=== PATIENT | female | born 1965 | race Caucasian/White ===

== ENCOUNTER → 2017-06-05 | Outpatient (CLI) | payer OTHER, BC ==
[~2017-06-05] MED LIST: BENZ100C6 PO; HYDR12.56 PO; LEVO-366 PO; LOSA50TA6 PO; [UNRECOGNIZED DRUG - OTHER] PO
--- NOTE | 2017-06-05 08:44 | DIAGNOSTIC IMAGING REPORT ---
LEFT HEEL 2 VIEWS HISTORY: Left heel pain. COMPARISON: None. FINDINGS: There is no fracture or dislocation. Soft tissues are unremarkable. No radiopaque foreign bodies. Small plantar and posterior calcaneal spurs. IMPRESSION: No fractures. Electronically signed by: Brant Bailey M.D. 06/05/2017 8:42 AM Dictated Date/Time: 06/05/2017 8:41 AM
[2017-06-05 09:39] LABS: BASO % 0.3 %; BASO ABS # 0.02 K/uL (0-0.2); COMPLETE YES; EOS % 0.2 %; HEMATOCRIT 45.4 % (37-47); IG% 0.2 %; LYMPH % 35.3 %; LYMPH ABS # 2.25 K/uL (1.2-3.4); MEAN CELL VOLUME 89.9 fL (80-100); MEAN CORPUSCULAR HEMOGLOBIN 29.9 pg (25-34); MEAN CORPUSCULAR HGB CONC 33.3 g/dl (32-36); MEAN PLATELET VOLUME 10.5 fL (7.4-10.4); MONO % 5.8 %; NEUT % 58.2 %; PLATELET COUNT 175 K/uL (130-400); RED BLOOD COUNT 5.05 M/uL (4.2-5.4); WHITE BLOOD COUNT 6.38 K/uL (4.8-10.8)
[2017-06-05 10:03] LABS: ALT/SGPT 20 U/L (12-78); BLOOD UREA NITROGEN 14 mg/dl (7-18); BUN/CREATININE RATIO 18.6 (10-20); CALCIUM 9.5 mg/dl (8.5-10.1); CARBON DIOXIDE 29 mmol/L (21-32); CHLORIDE 106 mmol/L (98-107); CHOLESTEROL 197 mg/dl (0-200); CREATININE 0.77 mg/dl (0.60-1.20); GLUCOSE 66 mg/dl (70-99); POTASSIUM 3.7 mmol/L (3.5-5.1); SODIUM 140 mmol/L (136-145)
[2017-06-05 10:14] LABS: ALB/GLOB RATIO 1.2 (0.9-2); ALKALINE PHOSPHATASE 92 U/L (45-117); AST/SGOT 20 U/L (15-37); CHOLESTEROL/HDL RATIO 4.3; HDL CHOLESTEROL 46 mg/dl; LDL CHOLESTEROL CALCULATED 123 mg/dl; TRIGLYCERIDES 140 mg/dl (0-150); VERY LOW DENSITY LIPOPROT CALC 28 mg/dl
[2017-06-05 17:47] LABS: URINE APPEARANCE CLEAR (CLEAR); URINE BILIRUBIN NEG (NEG); URINE COLOR YELLOW; URINE NITRITE NEG (NEG); URINE SPECIFIC GRAVITY 1.019 (1.000-1.030); UROBILINOGEN NEG (NEG); ZZUR CULT IF INDIC CLEAN CATCH NO
[2017-06-05 17:49] LABS: MANUAL MICROSCOPIC REQUIRED? NO; REVIEW REQ? NO
== END | disposition home or self-care (01) ==
LOC: C.RAD1850 07:26
PROVIDERS: ATTEND Internal Medicine
DX: M79.672 Pain in left foot (principal); D35.00 Benign neoplasm of unspecified adrenal gland; E78.5 Hyperlipidemia, unspecified

== ENCOUNTER → 2017-06-09 | Outpatient (CLI) | payer OTHER, BC ==
[2017-06-13 18:26] LABS: VANILMANDELIC ACID (VMA) 5.3 mg/24 h (<=6.0)
== END | disposition home or self-care (01) ==
LOC: C.LABBFT 10:23
PROVIDERS: ATTEND Internal Medicine
DX: D35.00 Benign neoplasm of unspecified adrenal gland (principal)

== ENCOUNTER → 2017-06-29 | Outpatient (CLI) | payer OTHER, BC ==
[2017-07-06 15:26] LABS: VANILMANDELIC ACID (VMA) 2.6 mg/24 h (<=6.0)
== END | disposition home or self-care (01) ==
LOC: C.LABBFT 18:19
PROVIDERS: ATTEND Internal Medicine
DX: D35.00 Benign neoplasm of unspecified adrenal gland (principal)

== ENCOUNTER → 2017-07-08 | Outpatient (CLI) | payer OTHER, BC ==
[~2017-07-08] MED LIST changes: +OPTIRAY 320 IV PRN
--- NOTE | 2017-07-08 07:32 | DIAGNOSTIC IMAGING REPORT ---
CT SCAN OF THE ABDOMEN AND PELVIS COMBO ADRENAL PROTOCOL CLINICAL HISTORY: Underlying anomaly. COMPARISON STUDY: Abdominal CT dated 08/30/2014. TECHNIQUE: Before and following the IV administration of 93 cc of Optiray 320, CT scan of the abdomen and pelvis is performed from the lung bases to the proximal femora. The abdominal CT is performed using the adrenal protocol. Images are reviewed in the axial, sagittal, and coronal planes. IV contrast was administered without complication. A dose lowering technique was utilized adhering to the principles of ALARA. The examination is degraded by motion artifact. CT DOSE: 1721.24 mGycm FINDINGS: Lung bases: The heart is normal in size and without pericardial effusion. Emphysema is noted. The lung bases are otherwise clear. Liver: The contrast-enhanced liver is normal in size, contour, and attenuation. There is no intrahepatic biliary ductal dilatation. The hepatic veins and portal veins are patent. Gallbladder: Unremarkable. Spleen: Normal in size and attenuation. Pancreas: Unremarkable. Adrenal glands: A 2.7 cm left adrenal nodule is again noted. This meets CT criteria for a fat-containing adenoma. The right adrenal gland is normal in appearance. Kidneys: No renal calculi are identified on the unenhanced series. The contrast enhanced kidneys are normal in size and without hydronephrosis. The kidneys enhance and excrete symmetrically. There is no evidence of urothelial lesion within the renal pelvis bilaterally or involving the proximal ureters. Abdominal vasculature: The abdominal aorta is normal in course and caliber noting moderate atherosclerotic calcification. Bowel: There is constipation and rectosigmoid fecal impaction. No bowel obstruction is seen. There is mild to moderate colonic diverticulosis without CT evidence of acute diverticulitis. The appendix is well-visualized and normal. Peritoneum: There is no intraperitoneal free air or abdominal ascites. Lymphadenopathy: None. Pelvic viscera: The bladder, uterus, and adnexa are normal as visualized. Skeletal structures: The Skeletal structures are osteopenic. There are postoperative changes from L3 -S1 spinal fusion. No lytic or blastic lesions are seen. IMPRESSION: 1. Again seen is a 2.7 cm left adrenal nodule. This meets CT criteria for a fat-containing adenoma. 2. The right adrenal gland is normal in appearance. 3. Emphysema. 4. No acute infectious or inflammatory abnormality is identified. 5. Colonic diverticulosis without CT evidence of acute diverticulitis. Electronically signed by: Jesus Bynum M.D. 07/08/2017 7:31 AM Dictated Date/Time: 07/08/2017 7:22 AM
== END | disposition home or self-care (01) ==
LOC: C.CTS 06:28
PROVIDERS: ATTEND Internal Medicine
DX: D35.00 Benign neoplasm of unspecified adrenal gland (principal); J43.9 Emphysema, unspecified; K57.30 Diverticulosis of large intestine without perforation or abscess without bleeding

== ENCOUNTER → 2017-07-28 | Outpatient (CLI) | payer OTHER, BC ==
[~2017-07-28] MED LIST changes: -OPTIRAY 320 IV PRN
== END | disposition home or self-care (01) ==
LOC: C.LAB1850 07:16
PROVIDERS: ATTEND Internal Medicine
DX: D35.00 Benign neoplasm of unspecified adrenal gland (principal)

== ENCOUNTER → 2017-08-01 | Outpatient (CLI) | payer OTHER, BC ==
--- NOTE | 2017-08-01 09:32 | DIAGNOSTIC IMAGING REPORT ---
CERVICAL SPINE W/O CLINICAL HISTORY: 51 years-old Female presenting with CERVICAL STENOSIS. TECHNIQUE: Multidetector CT of the cervical spine was performed without the use of intravenous contrast. IV contrast: None. A dose lowering technique was used consistent with the principles of ALARA (as low as reasonably achievable). COMPARISON: MR from 2012. CT DOSE (mGy.cm): The estimated cumulative dose is 253.76 mGy.cm. 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 Orthopedic hardware in the inferior cervical spine. Normal cervical lordosis. Fixation hardware noted at C5-6 and C6-7. Partial osseous fusion noted at C5-6 at the central endplates. No hardware complication. Interbody spacers suggested at these levels. No acute fracture or subluxation. Vertebral bodies maintain normal height and alignment. Intervertebral disc spaces preserved at the nonoperative levels. No osseous neural foraminal or spinal canal stenosis. Paraspinal soft tissues within normal limits. Limited intracranial evaluation normal. Emphysematous changes at the lung apices. IMPRESSION: 1. Postsurgical changes of anterior cervical discectomy and fusion of C5-6 and C6-7. No hardware complication. 2. No acute osseous injury of the cervical spine. Electronically signed by: Geronimo Lou M.D. 08/01/2017 9:31 AM Dictated Date/Time: 08/01/2017 9:27 AM
== END | disposition home or self-care (01) ==
LOC: C.CTS 09:03
PROVIDERS: ATTEND Orthopaedic Surgery
DX: M48.02 Spinal stenosis, cervical region (principal); Z98.890 Other specified postprocedural states

== ENCOUNTER → 2017-10-21 | Outpatient (CLI) | payer OTHER, BC ==
[~2017-10-21] MED LIST changes: +BENZ-54 PO; -BENZ100C6 PO
== END | disposition home or self-care (01) ==
LOC: C.PAPS 13:11
PROVIDERS: ATTEND Internal Medicine
DX: Z00.00 Encounter for general adult medical examination without abnormal findings (principal)

== ENCOUNTER → 2017-10-28 | Outpatient (CLI) | payer OTHER, BC ==
[2017-10-31 19:40] LABS: NORMETANEPHRINE PLASMA 170 pg/mL (<=148); TESTOSTERONE,TOTAL 12 ng/dL (2-45); TOTAL METANEPHRINE PLASMA 170 pg/mL (<=205)
== END | disposition home or self-care (01) ==
LOC: C.LABBFT 07:28
PROVIDERS: ATTEND Internal Medicine Endocrinology, Diabetes & Metabolism
DX: D35.00 Benign neoplasm of unspecified adrenal gland (principal)

== ENCOUNTER → 2017-11-17 | Outpatient (CLI) | payer OTHER, BC ==
--- NOTE | 2017-11-25 14:05 | CODING QUERY NO DIAGNOSIS ---
: 1965 TREATMENT RENDERED WITHOUT A DIAGNOSIS To promote full compliance with coding requirements relating to patient care, physician participation is requested in all cases of cashier associate uncertainty. Please assist us with providing a diagnosis/symptom for the test(s) below: A diagnosis/symptom was not documented on your Order. A valid diagnosis/symptom is required to bill all insurances. Please remember that we are unable to code a diagnosis of rule out, probable, possible, questionable, or suspected. Tests that require a diagnosis: Please provide original order. Per patient access, no Allscript order. Date of Service: 11/17/17 * Procedure for endo cervical polyp DIAGNOSIS: Provider Signature: Date: Thank you Brandy Padron Health Information Management Once completed, please kindly fax back to [phone] For questions please call [phone]
== END | disposition home or self-care (01) ==
LOC: C.PATHSPEC 11:12
PROVIDERS: ATTEND Obstetrics & Gynecology
DX: N84.1 Polyp of cervix uteri (principal)

== ENCOUNTER 2023-12-23 12:10 | Inpatient (IN) ==
--- NOTE | 2023-12-23 12:28 | Emergency Department Note ---
Impression & Plan Acute hypoxemic respiratory failure, Tobacco abuse, COPD exacerbation ED Provider Note NAME: EHSAN BOB AGE: 58 SEX: F : 1965 ARRIVES VIA: Ambulance INFORMANT: [Patient][, ] ED PROVIDER(S): [Dayday Sears MD] CHIEF COMPLAINT: Shortness of breath, outpatient referral MEDICAL DECISION MAKING: Is due to concern for shortness of breath and associated hypoxia. IV was established and blood work is obtained along with a bio fire chest x-ray and the patient was ordered IV magnesium IV fluids as well as DuoNeb treatments. The patient did receive 125 methylprednisolone in route. Chest x-ray does not show any evidence of obvious pneumonia and bio fire is negative. White count of 11 with a normal H&H and platelet count. Kidney function is unremarkable. Bicarb elevated which certainly could be secondary to the patient's chronic COPD as the patient's VBG pH is normal with an elevated pCO2. Kidney function unremarkable Pro-Shola negative. LFTs unremarkable. Upon reassessment the patient was feeling improved after treatment but given the patient's significant hypoxia I did speak the on-call hospitalist service. Patient was admitted to the medicine service by Dr. Carcamo. Critical Care: I have personally spent 37 minutes of critical care time in direct management of this patient. This includes bedside care, interpretation of diagnostic studies, and testing, discussion with consultants, patient, and family members, and other require inpatient management activities. This 37 minutes is in excess of all separately billable procedures. Discussion w/ other healthcare providers: Dr. Carcamo inpatient medicine service Prior /Outside records reviewed: I reviewed a primary care visit from earlier today patient was seen by Noemi Varghese. Patient was noted to have a history of COPD and was hypoxic was called for referral. Patient's was recently positive for RSV. Differential diagnosis: Reactive airway disease, pneumonia, pneumothorax, COPD, CHF, ACS, pulmonary embolism, musculoskeletal, GERD as well as other pathologies were considered. Diagnostics, as interpreted by me: ECG: Normal sinus rhythm, rate of 81, normal intervals, right axis deviation Q- wave in aVL no obvious ST elevations. Cardiac monitoring: An order was placed for continuous cardiac monitoring. The monitor shows a rate of 82 with sinus rhythm. [Patient was placed on pulse oximetry] Medical decision rules: None Imaging studies: [I informally interpreted the patient's chest x-ray does not show obvious pneumonia or pneumothorax with formal report to follow.] [] HPI: Patient presents due to concern for shortness of breath and hypoxia. The patient has gotten progressively worse with regard to illness over the last 2 weeks. The week prior the patient was having some vomiting and diarrhea but this is since abated and resolved. The patient states that she has been struggling with some cough and congestion since October which has not really resolved and seem to be worsening the last couple of days to where she was seen in her outpatient physicians appointment noted to have a room air sat in the 70s. The patient was placed on supplemental oxygen and given a DuoNeb treatment. The patient did receive 125 mg of Solu-Medrol in route. Patient does feel improved. The patient was using her nebulizers at home. 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 Patient denies any leg swelling or calf pain. The patient does have a cough but it is nonproductive. The patient is a smoker. Patient states that she no longer has any diarrhea or vomiting. No recent antibiotic use. PAST MEDICAL HISTORY: [See Below] PAST SURGICAL HISTORY: [See Below] SOCIAL HISTORY: [See Below] HOME MEDICATIONS: [See Below] ALLERGIES: [See Below] VITALS: [See Below] PHYSICAL EXAMINATION: GENERAL: NAD, non-toxic. EYE EXAM: Normal conjunctiva. PERRL, no anisocoria and EOM's grossly intact w/o pain. OROPHARYNX: Dry mucus membranes, grossly normal dentition. NECK: Trachea midline, no stridor. [Supple, no nuchal rigidity, no adenopathy, non-tender. No signs of meningismus. FROM of the neck with good chin to chest and neck extension.] LUNGS: Inspiratory and x-ray wheezes. Normal chest wall mechanics. HEART: NSR, no MRG. ABDOMEN: Abdomen soft, non-tender, no masses, no rebound or guarding. BACK: No CVA TTP. SKIN: No rashes and no bruising. UPPER EXTREMITIES: Upper extremities are grossly normal. LOWER EXTREMITIES: Grossly normal, no edema. Negative Homans' sign bilaterally. NEURO EXAM: A&O x3, cranial nerves II-XII grossly intact, normal speech, moves all 4 extremities. Past Med/Surg History Medical History Hypoxia Hx of colonic polyp CANCEROUS POLP 2020 Colon cancer screening Degenerative disc disease Osteoarthritis Temporomandibular joint disorder Irregular heart beat Hypertension Hyperlipidemia Chronic obstructive pulmonary disease USED INHALER YESTERDAY Surgical History History of colonoscopy History of endometrial ablation Fusion of spine CERVICAL + LUMBAR SPINE History of mandibular surgery [place] teeth removed History of tonsillectomy and adenoidectomy Family History Father Family history of diabetes mellitus Denies family history of Ovarian cancer Prostate cancer Myocardial infarction Breast cancer Colorectal cancer Social History Smoking Status: Current every day smoker Tobacco Type: Cigarettes Cigarettes Per Day: 1 pack; Second Hand Exposure: No; Do You Dip or Chew Tobacco: No; Tobacco Cessation Education Requested by Patient: No Hx Alcohol Use: No Hx Substance Use: No Preferred Language: Salvadorean Communication Ability: Effective Visual Impairment: No Limitations 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 Seatbelt Use: always Sunscreen Use: No Assistive Devices: None Allergies Allergies Allergy/AdvReac Type Severity Reaction Status Date / Time erythromycin base Allergy Severe RASH/PROBLEMS Verified 12/23/23 10:06 BREATHING hydrochlorothiazide Allergy Unknown CAN'T Verified 12/23/23 10:06 REMEMBER RX morphine AdvReac Mild NAUSEA/VOMI Verified 12/23/23 10:06 TTING Home Meds Home Medications Medication Instructions Recorded Confirmed glucosamine-chondroitin 250 mg-200 2 tab PO QAM 07/23/21 12/23/23 mg tablet (Osteo Bi-Flex) lidocaine 5 % topical patch 1 patch topical DAILY 05/11/23 12/23/23 diazepam 5 mg tablet 5 mg PO DAILY PRN Anxiety 09/24/23 12/23/23 prednisone 10 mg tablet 10 mg PO .TAPER UD 12/23/23 12/23/23 Previous Rx's Medication Instructions Recorded diltiazem HCl 360 mg capsule,24 360 mg PO DAILY #90 caps 12/18/22 hr,extended release losartan 100 mg tablet 100 mg PO DAILY #90 tabs 02/21/23 fluticasone fur. 200 mcg-umeclid 1 inh inhalation DAILY #3 Inhalers 03/18/23 62.5 mcg-vilant 25 mcg inhalat.powder (Trelegy Ellipta) hydralazine 25 mg tablet 25 mg PO DAILY #90 tabs 03/18/23 rosuvastatin 10 mg tablet 10 mg PO DAILY #90 tabs 05/26/23 albuterol sulfate 90 mcg/actuation 2 puff inhalation QID PRN 06/09/23 aerosol inhaler (ProAir HFA) shortness of breath or wheezing #25.5 grams Results & Data (ED) Vital Signs Vital Signs - 24 hr 12/23/23 12:26 12/23/23 12:26 12/23/23 12:26 Temperature 36.9 C Temperature Source Oral Pulse Rate 77 Pulse Rate from SpO2 Sensor Respiratory Rate 24 Respiratory Effort / Characteristics Non-Labored Spontaneous Respiratory Depth Normal Respiratory Pattern Regular Blood Pressure 154/81 H Blood Pressure Mean 105 Blood Pressure Position Lying Pulse Oximetry 91 72 L Oxygen Delivery Method Nasal Cannula Room Air Nasal Cannula Oxygen Flow Rate 6 Sepsis Recent Fever Within 48 Hours No Sepsis New/Unexplained Change in Mental Status No Sepsis Action Taken by Nursing No Action Required Oxygen Flow Rate - Titration 6 Pulse Oximetry Post Tiitration 92 12/23/23 12:40 12/23/23 13:00 12/23/23 13:30 Temperature Temperature Source Pulse Rate 80 93 H Pulse Rate from SpO2 Sensor 89 Respiratory Rate 23 Respiratory Effort / Characteristics Respiratory Depth Respiratory Pattern Blood Pressure 134/80 152/75 H Blood Pressure Mean 98 101 Blood Pressure Position Pulse Oximetry 92 89 L Oxygen Delivery Method Nasal Cannula Nasal Cannula Oxygen Flow Rate 6 6 Sepsis Recent Fever Within 48 Hours Sepsis New/Unexplained Change in Mental Status Sepsis Action Taken by Nursing Oxygen Flow Rate - Titration Pulse Oximetry Post Tiitration Home Medications Current Medication List: was personally reviewed by me Laboratory Data Attestation: I reviewed the patient's lab results. 12/24/23 05:24 12/24/23 05:24 Lab Results 02/20/24 02/20/24 Range/Units 12:19 12:20 WBC 11.34 H (4.8-10.8) K/ul RBC 4.69 (4.20-5.40) M/uL Hgb 13.7 (12.0-16.0) g/dl Hct 41.9 (37.0-47.0) % MCV 89.3 (80.0-100.0) fL MCH 29.2 (25.0-34.0) pg MCHC 32.7 (32.0-36.0) g/dL RDW Std Deviation 46.0 (36.4-46.3) fL RDW Coeff of Feliz 14.2 (11.5-14.5) % Plt Count 244 (130-400) K/uL MPV 9.2 L (9.4-12.4) fL Immature Gran % (Auto) 0.6 % Neut % (Auto) 78.1 % Lymph % (Auto) 15.6 % [place] % (Auto) 5.6 % Eos % (Auto) 0.0 % Baso % (Auto) 0.1 % Neut # (Auto) 8.86 H (1.40-6.50) K/uL Lymph # (Auto) 1.77 (1.20-3.40) K/uL [place] # (Auto) 0.63 H (0.11-0.59) K/uL Eos # (Auto) 0.00 (0.00-0.50) K/uL Baso # (Auto) 0.01 (0.00-0.20) K/uL Immature Gran # (Auto) 0.07 (0.01-0.20) K/uL PT 10.3 (9.0-12.0) Seconds INR 0.9 (0.9-1.1) APTT 27 (21-31) Seconds PTT Ratio 1.0 VBG pH 7.42 H (7.36-7.41) VBG pCO2 56 H (38-50) mmHg VBG pO2 41 mmHg VBG HCO3 36 mmol/L VBG O2 Saturation 73.9 % VBG Base Excess 9.7 mEq/L Sodium 139 (136-145) mmol/L Potassium 4.0 (3.5-5.1) mmol/L Chloride 101 (98-107) mmol/L Carbon Dioxide 32 (21-32) mmol/L Anion Gap 6 (3-11) BUN 11 (6-23) mg/dl Creatinine 0.67 (0.6-1.2) mg/dl Est Cr Clr Drug Dosing 106.9 ml/min Est GFR ( Amer) 110.7 ml/min Est GFR (Non-Af Amer) 95.5 ml/min BUN/Creatinine Ratio 16.4 (10-20) Glucose 118 H (70-99(Fasting)) mg/dl Calcium 9.7 (8.6-10.3) mg/dl Magnesium 2.0 (1.7-2.4) mg/dl Total Bilirubin 0.5 (0.2-1.0) mg/dl AST 19 (13-39) U/L ALT 14 (7-52) U/L Alkaline Phosphatase 86 (34-104) U/L Total Protein 7.1 (6.0-8.3) gm/dl Albumin 4.5 (3.4-5.0) gm/dl Globulin 2.6 (2.5-4.0) gm/dl Albumin/Globulin Ratio 1.7 (0.9-2) Procalcitonin < 0.02 (0-0.5) ng/ml Adenovirus (PCR) Not Detected (NotDetected) B. pertussis DNA (PCR) Not Detected (NotDetected) B.parapertussis DNA PCR Not Detected (NotDetected) C. pneumoniae DNA (PCR) Not Detected (NotDetected) Coronavirus OC43 (PCR) Not Detected (NotDetected) Coronavirus HKU1 (PCR) Not Detected (NotDetected) Coronavirus 229E (PCR) Not Detected (NotDetected) SARS-CoV-2 (PCR) Not Detected (NotDetected) Coronavirus NL63 (PCR) Not Detected (NotDetected) Human Metapneumovir PCR Not Detected (NotDetected) Influenza Type A (PCR) Not Detected (NotDetected) Influenza Type B (PCR) Not Detected (NotDetected) M. pneumoniae (PCR) Not Detected (NotDetected) Parainfluenza 1 (PCR) Not Detected (NotDetected) Parainfluenza 2 (PCR) Not Detected (NotDetected) Parainfluenza 3 (PCR) Not Detected (NotDetected) Parainfluenza 4 (PCR) Not Detected (NotDetected) RSV (PCR) Not Detected (NotDetected) Entero/Rhino (PCR) Not Detected (NotDetected) Administered Medications Acetaminophen (Acetaminophen 325 Mg Tab) 325 mg PO Q4H PRN PRN Reason: Pain or Fever Stop: 01/23/24 01:42 Last Admin: 12/24/23 02:06 Dose: 325 mg Documented By: SJR Albuterol (Albut/Ipratrop 3mg/0.5mg Neb 3 Ml Vial) 3 ml NEB QIDR [facility]; Protocol Stop: 01/22/24 15:59 Last Admin: 12/24/23 11:11 Dose: 3 ml Documented By: Admin: 12/24/23 07:08 Dose: Not Given Documented By: Admin: 12/23/23 20:12 Dose: Not Given Documented By: Admin: 12/23/23 16:10 Dose: 3 ml Documented By: DJP Budesonide (Budesonide 0.5 Mg/2 Ml Vial (Pulmicort)) 0.5 mg NEB BIDR [facility] Stop: 01/22/24 18:59 Last Admin: 12/24/23 07:08 Dose: 0.5 mg Documented By: Admin: 12/23/23 20:10 Dose: 0.5 mg Documented By: BWT Diltiazem HCl (Diltiazem Hcl 180 Mg Capcr) 360 mg PO DAILY [facility] Stop: 01/23/24 08:59 Last Admin: 12/24/23 08:19 Dose: 360 mg Documented By: TMP Enoxaparin Sodium (Enoxaparin Inj 40 Mg/0.4 Ml Syr) 40 mg SQ Q24H [facility] Stop: 01/22/24 20:59 Last Admin: 12/23/23 21:35 Dose: Not Given Documented By: TJS Formoterol Fumarate (Formoterol 20 Mcg/2 Ml Vial) 20 mcg NEB BIDR [facility] Stop: 01/22/24 18:59 Last Admin: 12/24/23 07:08 Dose: 20 mcg Documented By: Admin: 12/23/23 20:10 Dose: 20 mcg Documented By: BWT Guaifenesin (Guaifenesin 600 Mg Tabcr) 600 mg PO Q12 MICHELLE Stop: 01/22/24 15:44 Last Admin: 12/24/23 08:19 Dose: 600 mg Documented By: Admin: 12/23/23 21:11 Dose: 600 mg Documented By: Admin: 12/23/23 16:05 Dose: 600 mg Documented By: CPB Hydralazine HCl (Hydralazine Hcl 25 Mg Tab) 25 mg PO DAILY MICHELLE Stop: 01/23/24 08:59 Last Admin: 12/24/23 08:18 Dose: 25 mg Documented By: TMP Methylprednisolone 40 mg/ (Syringe) 0.64 mls @ 1.5 mls/min IV BID17 MICHELLE Stop: 01/22/24 16:59 Last Admin: 12/24/23 08:17 Dose: 1.5 mls/min Documented By: Admin: 12/23/23 18:09 Dose: 1.5 mls/min Documented By: MT Losartan Potassium (Losartan Potassium 50 Mg Tab) 100 mg PO DAILY MICHELLE Stop: 01/23/24 08:59 Last Admin: 12/24/23 08:19 Dose: 100 mg Documented By: TMP Miscellaneous (Remove Nicoderm Patch) 1 each N/A DAILY@0859 MICHELLE Stop: 01/23/24 08:58 Last Admin: 12/24/23 08:16 Dose: 1 each Documented By: TMP Nicotine (Nicotine 7 Mg/24 Hr Tdsy) 7 mg TD QAM MICHELLE Stop: 01/22/24 15:44 Last Admin: 12/24/23 08:17 Dose: 7 mg Documented By: Admin: 12/23/23 16:57 Dose: 7 mg Documented By: CPB Pantoprazole Sodium (Pantoprazole 40 Mg Tab) 40 mg PO DAILY MICHELLE Stop: 01/22/24 15:59 Last Admin: 12/24/23 08:19 Dose: 40 mg Documented By: Admin: 12/23/23 16:57 Dose: 40 mg Documented By: CPB Rosuvastatin Calcium (Rosuvastatin Calcium 10 Mg Tab) 10 mg PO DAILY MICHELLE Stop: 01/23/24 08:59 Last Admin: 12/24/23 08:19 Dose: 10 mg Documented By: TMP Discontinued Medications Albuterol (Albut/Ipratrop 3mg/0.5mg Neb 3 Ml Vial) 12 ml INH ONE STA Stop: 12/23/23 12:23 Last Admin: 12/23/23 12:36 Dose: 12 ml Documented By: CPB Sodium Chloride (Nss) 1,000 mls @ 999 mls/hr IV .Q1H1M MICHELLE Stop: 12/23/23 13:30 Last Infusion: 12/23/23 17:23 Dose: Infused Documented By: Admin: 12/23/23 12:42 Dose: 999 mls/hr Documented By: CPB Magnesium Sulfate/Dextrose (Magnesium Sulfate / D5w) 1 gm in 100 mls @ 300 mls/hr IV NOW STA Stop: 12/23/23 12:43 Last Infusion: 12/23/23 13:09 Dose: Infused Documented By: Admin: 12/23/23 12:40 Dose: 300 mls/hr Documented By: CPB Azithromycin 500 mg/ Dextrose 255 mls @ 127.5 mls/hr IV NOW STA Stop: 12/23/23 17:37 Last Infusion: 12/23/23 19:00 Dose: Infused Documented By: Admin: 12/23/23 16:57 Dose: 127.5 mls/hr Documented By: CPB Ceftriaxone Sodium 2,000 mg/ (Dextrose) 50 mls @ 100 mls/hr IV NOW STA; Protocol Stop: 12/23/23 16:07 Last Infusion: 12/23/23 17:22 Dose: Infused Documented By: Admin: 12/23/23 16:00 Dose: 100 mls/hr Documented By: CPB Imaging Data Radiologist's Impression: Chest X-Ray 12/23/23 12:22 XR chest 1V portable CLINICAL HISTORY: Dyspnea TECHNIQUE: Single frontal radiograph of the chest was obtained. Comparison: Comparison is made to chest radiograph 10/15/2021 FINDINGS: Cervical spine fixation hardware is seen. Calcified aortic knob is seen. The lungs are clear. No evidence of pleural effusion or pneumothorax. IMPRESSION: No acute abnormalities and in particular no radiographic evidence of pneumonia. ACT 112: Negative or not required by law. Electronically signed by: Kd Donato M.D. 12/23/2023 12:45 PM Discharge Plan Visit Data Chief Complaint: Shortness of Breath/Dyspnea ED Provider: Dayday Sears Discharge Problem: Acute hypoxemic respiratory failure, Tobacco abuse, COPD exacerbation Patient Disposition: Admitted As Inpatient Discharge Instructions Interventions: ED Discharge Assessment Last Done: 12/24/23 00:00
[2023-12-23 12:30] LABS: Base Excess VBG 9.7 mEq/L; HCO3 VBG 36 mmol/L; Oxygen Saturation VBG 73.9 %; PCO2 VBG 56 mmHg (38-50); PO2 VBG 41 mmHg; pH VBG 7.42 (7.36-7.41)
[2023-12-23 12:35] LABS: Basophils # (auto) 0.01 K/uL (0.00-0.20); Basophils % (auto) 0.1 %; Hematocrit (blood only) 41.9 % (37.0-47.0); Hemoglobin 13.7 g/dl (12.0-16.0); Immature Granulocytes # (auto) 0.07 K/uL (0.01-0.20); Immature Granulocytes % (auto) 0.6 %; Lymphocytes # (auto) 1.77 K/uL (1.20-3.40); Lymphocytes % (auto) 15.6 %; Mean Corpuscular Hemoglobin 29.2 pg (25.0-34.0); Mean Corpuscular Hgb Conc 32.7 g/dL (32.0-36.0); Mean Corpuscular Volume 89.3 fL (80.0-100.0); Mean Platelet Volume 9.2 fL (9.4-12.4); Monocytes # (auto) 0.63 K/uL (0.11-0.59); Monocytes % (auto) 5.6 %; Neutrophils # (auto) 8.86 K/uL (1.40-6.50); Neutrophils % (auto) 78.1 %; Platelet Count 244 K/uL (130-400); RDW Coefficient of Variation 14.2 % (11.5-14.5); Red Blood Count 4.69 M/uL (4.20-5.40); White Blood Count 11.34 K/ul (4.8-10.8)
[2023-12-23] MEDS: ALBUT/IPRATROP 3MG/0.5MG NEB 3 ML VIAL INH STA (12:36)
[2023-12-23] MEDS: MAGNESIUM SULFATE / D5W 1 GM/100 ML BAG IV STA (12:40)
[2023-12-23] MEDS: SODIUM CHLORIDE 0.9% 1,000 ML IV SCH (12:42)
--- NOTE | 2023-12-23 12:47 | XRay Report ---
XR chest 1V portable CLINICAL HISTORY: Dyspnea TECHNIQUE: Single frontal radiograph of the chest was obtained. Comparison: Comparison is made to chest radiograph 10/15/2021 FINDINGS: Cervical spine fixation hardware is seen. Calcified aortic knob is seen. The lungs are clear. No evid ence of pleural effusion or pneumothorax. IMPRESSION: No acute abnormalities and in particular no radiographic evidence of pneumonia. ACT 112: Negative or not required by law. Electronically signed by: Kd Donato M.D. 12/23/2023 12:45 PM
[2023-12-23 12:52] LABS: Albumin Globulin Ratio 1.7 (0.9-2); Albumin Level 4.5 gm/dl (3.4-5.0); BUN Creatinine Ratio 16.4 (10-20); Bilirubin,Total 0.5 mg/dl (0.2-1.0); Calcium 9.7 mg/dl (8.6-10.3); Creatinine Clr Calc Pharmacy 106.9 ml/min; Est GFR (African American) 110.7 ml/min; Est GFR (Non-African American) 95.5 ml/min; Globulin 2.6 gm/dl (2.5-4.0); Total Protein 7.1 gm/dl (6.0-8.3)
[2023-12-23 13:06] LABS: INR 0.9 (0.9-1.1); Partial Thromboplastin Time 27 Seconds (21-31); Prothrombin Time 10.3 Seconds (9.0-12.0)
[2023-12-23 13:21] LABS: Appearance Urine Clear (Clear); Bilirubin Urine Negative (Negative); Blood Urine Negative (Negative); Color Urine Yellow; Glucose Urine UA Negative (Negative); Ketones Urine Negative (Negative); Leukocyte Esterase Urine Negative (Negative); Nitrite Urine Negative (Negative); Protein Urine Negative (Negative); Specific Gravity Urine 1.008 (1.000-1.030); Urobilinogen Urine Negative (Negative)
[2023-12-23 13:57] LABS: Adenovirus PCR Not Detected (NotDetected); Bordetella parapertussis PCR Not Detected (NotDetected); Bordetella pertussis PCR Not Detected (NotDetected); Chlamydia pneumoniae PCR Not Detected (NotDetected); Coronavirus 229E PCR Not Detected (NotDetected); Coronavirus CoV-2 (COVID19)PCR Not Detected (NotDetected); Coronavirus HKU1 PCR Not Detected (NotDetected); Coronavirus NL63 PCR Not Detected (NotDetected); Coronavirus OC43PCR Not Detected (NotDetected); Human Metapneumovirus PCR Not Detected (NotDetected); Influenza A PCR Not Detected (NotDetected); Influenza B PCR Not Detected (NotDetected); Mycoplasma pneumoniae PCR Not Detected (NotDetected); Parainfluenza Virus 1 PCR Not Detected (NotDetected); Parainfluenza Virus 2 PCR Not Detected (NotDetected); Parainfluenza Virus 3 PCR Not Detected (NotDetected); Parainfluenza Virus 4 PCR Not Detected (NotDetected); Respiratory Syncytial VirusPCR Not Detected (NotDetected); Rhinovirus/Enterovirus PCR Not Detected (NotDetected)
--- NOTE | 2023-12-23 15:26 | History & Physical Report ---
Date of Service December 23, 2023 Assessment & Plan (1) Hypoxia: Plan: -Admit to med/tele on pulse oximetry -Currently hemodynamically stable and stable on 4L NC -Presented to the ED from her PCP's office due to progressive SOB, cough, and wheezing over the past week, was noted to be hypoxic with SpO2 in the 80's -At this time it appears that the patient is experiencing a COPD exacerbation -Will give 40 mg IV Nahum-medrol now, continue BID IV dosing until stable -Will start Azithromycin and Ceftriaxone -QIDr Duonebs and BIDr budesonide/formoterol nebs, incentive spirometry, flutter therapy -Daily pantoprazole while on Steroids for stress ulcer PPX -Prn O2 to keep SpO2 between 89-92% -BID Guaifenesin -SQ lovenox for DVT PPX -HH diet -AM CBC, BMP (2) COPD exacerbation: Plan: -See hypoxia (3) Hypertension: Plan: -Stable -Continue hydralazine and losartan (4) Tobacco abuse: Plan: -Nicotine patch ordered -Continue to stress the importance of smoking cessation Plan The patient was discussed with Dr. Carcamo at the time of the admission History of Present Illness Chief Complaint: Acute hypoxic respiratory failure with hypoxia at PCP's office Primary Care Provider: Milton Meléndez MD Anjelica is a 58 yr old female with a PMH significant for COPD, tobacco abuse, HTN, palpitations, Pulmonary HTN who presented to the [facility] ED via EMS from her PCP's office due to increased WOB and hypoxia. On arrival to the ED she was noted to be hypoxic with SpO2 in the low 80's to high 70's on RA and tachycardic with HR in the 90's but otherwise stable/ Labs were significant for a leukocytosis of 11 with neutrophil predominance of 8.8, VBG pH of 7.42 with pCO2 of 56 and pO2 WNL, negative procal, and negative full respiratory biofire. Chest xray was read as "No acute abnormalities and in particular no radiographic evid ence of pneumonia.". Prior to admission the patient was given 1L NSS, an hour long albuterol treatment, and 1gm IV mag sulfate. At the time of the exam the patient was sitting in bed an appears comf ortable, she is currently stable on 6L NC. She states that she and her developed GI symptoms including nausea and non-bloody diarrhea last week. She then developed increased respiratory symptoms including increased cough frequency, mucus production, and SOB. She started a home prednisone taper on 12/21, she started with 40 mg PO daily for the past 2 days without significant improvement. She is currently smoking "a few" cigarettes daily and has been unable to completely quit. She states that she was only able to smoke 2 cigarettes this am then made went to her PCP appointment. She feels much improved after the initial treatment she received in the ED but is not back to her baseline yet. She does not use home O2 at baseline. She is a full code and would want her to make medical decisions for her if she cannot make them herself. Please refer to Dr. Carcamo's alteration for any changes to the treatment plan Allergies Allergy/AdvReac Type Severity Reaction Status Date / Time erythromycin base Allergy Severe RASH/PROBLEMS Verified 12/23/23 10:06 BREATHING hydrochlorothiazide Allergy Unknown CAN'T Verified 12/23/23 10:06 REMEMBER RX morphine AdvReac Mild NAUSEA/VOMI Verified 12/23/23 10:06 TTING Home Medications Medication Instructions Recorded Confirmed Type glucosamine-chondroitin 250 mg-200 2 tab PO QAM 07/23/21 12/23/23 History mg tablet (Osteo Bi-Flex) diltiazem HCl 360 mg capsule,24 360 mg PO DAILY #90 caps 12/18/22 12/23/23 Rx hr,extended release losartan 100 mg tablet 100 mg PO DAILY #90 tabs 02/21/23 12/23/23 Rx fluticasone fur. 200 mcg-umeclid 1 inh inhalation DAILY #3 Inhalers 03/18/23 12/23/23 Rx 62.5 mcg-vilant 25 mcg inhalat.powder (Trelegy Ellipta) hydralazine 25 mg tablet 25 mg PO DAILY #90 tabs 03/18/23 12/23/23 Rx lidocaine 5 % topical patch 1 patch topical DAILY 05/11/23 12/23/23 History rosuvastatin 10 mg tablet 10 mg PO DAILY #90 tabs 05/26/23 12/23/23 Rx albuterol sulfate 90 mcg/actuation 2 puff inhalation QID PRN 06/09/23 12/23/23 Rx aerosol inhaler (ProAir HFA) shortness of breath or wheezing #25.5 grams diazepam 5 mg tablet 5 mg PO DAILY PRN Anxiety 09/24/23 12/23/23 History prednisone 10 mg tablet 10 mg PO .TAPER UD 12/23/23 12/23/23 History Past Med/Surg History Medical History (Updated 12/23/23 @ 15:56 by Abel Hayden PA-C) Hypoxia Hx of colonic polyp CANCEROUS POLP 2019 Colon cancer screening Degenerative disc disease Osteoarthritis Temporomandibular joint disorder Irregular heart beat Hypertension Hyperlipidemia Chronic obstructive pulmonary disease USED INHALER YESTERDAY Surgical History History of colonoscopy History of endometrial ablation Fusion of spine CERVICAL + LUMBAR SPINE History of mandibular surgery [place] teeth removed History of tonsillectomy and adenoidectomy Family History Father Family history of diabetes mellitus Denies family history of Ovarian cancer Prostate cancer Myocardial infarction Breast cancer Colorectal cancer Social History Smoking Status: Current every day smoker Tobacco Type: Cigarettes Cigarettes Per Day: 20; Second Hand Exposure: No; Do You Dip or Chew Tobacco: No; Hx Alcohol Use: No Hx Substance Use: No Preferred Language: Guatemalan Communication Ability: Effective Visual Impairment: No Limitations Hearing Ability: Normal Welder Gun Required: No Beliefs That Will Affect Care: None marital status: Current Living Situation: Spouse current occupational status: employed current occupation: [employer] Feels Safe at Home: Yes Childhood Exposure to Second-Hand Smoke: No Dental Care, Regularly: No Physical Activity Frequency: Other Physical Activity Frequency Comment: 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 Seatbelt Use: always Sunscreen Use: No Assistive Devices: Contacts, Denture - Upper and Glasses Physical Exam Physical Exam: Physical Exam: General: In no acute distress, stated age, ill appearing but non-toxic HEENT: Normocephalic, atraumatic, no scleral icterus, pupils around round, symmetrical, and reactive to light, moist mucus membranes, trachea midline, no thyromegaly Chest/Pulm: No respiratory distress, symmetrical chest expansion, mild expiratory wheezing throughout Cardiac: RRR, no murmurs noted Abdomen: Negative for ascites and bruising, normoactive bowel sounds, soft, non-tender to palpation throughout Musculoskeletal: Symmetrical and without signs of acute trauma, upper and lower extremities with full ROM, no atrophy, spasticity, or flaccidity Extremities: Radial, dorsalis pedis, and posterior tibial pulses are intact and symmetrical, no edema noted in the BL LE's Skin: Warm, dry, no rashes , lesions, or scars noted Neuro: Alert and oriented to person, place, month, year, and president, no focal defects, no tremors noted Psych: No acute distress, calm and cooperative during the exam Results & Data Results & Data Vital Signs (Past 12 Hours) Vital Signs Temp Pulse Resp BP Pulse Ox O2 Del Method O2 Flow Rate 12/23/23 13:30 152/75 H 89 L Nasal Cannula 6 12/23/23 13:00 93 H 23 134/80 92 Nasal Cannula 6 12/23/23 12:40 80 12/23/23 12:26 72 L Room Air, Nasal Cannula 12/23/23 12:26 36.9 C 77 24 154/81 H 91 Nasal Cannula 6 Laboratory Results Abnormal lab results 12/23/23 12/23/23 Range/Units 12:20 Unknown WBC 11.34 H (4.8-10.8) K/ul MPV 9.2 L (9.4-12.4) fL Neut # (Auto) 8.86 H (1.40-6.50) K/uL [place] # (Auto) 0.63 H (0.11-0.59) K/uL VBG pH 7.42 H (7.36-7.41) VBG pCO2 56 H (38-50) mmHg Glucose 118 H (70-99(Fasting)) mg/dl Urine pH 8.0 H (4.5-7.5) Diagnostic Findings Chest X-Ray 12/23/23 12:22 XR chest 1V portable CLINICAL HISTORY: Dyspnea TECHNIQUE: Single frontal radiograph of the chest was obtained. Comparison: Comparison is made to chest radiograph 10/15/2021 FINDINGS: Cervical spine fixation hardware is seen. Calcified aortic knob is seen. The lungs are clear. No evidence of pleural effusion or pneumothorax. IMPRESSION: No acute abnormalities and in particular no radiographic evidence of pneumonia. ACT 112: Negative or not required by law. Electronically signed by: Kd Donato M.D. 12/23/2023 12:45 PM ECG Additional Comments: Normal sinus rhythm Normal ECG When compared with ECG of 10-NOV-2012 00:28, Nonspecific T wave abnormality no longer evident in Inferior leads Code Status & VTE Plan Code Status Full code VTE Prophylaxis Plan VTE Prophylaxis will be ordered: Yes Supervising Physician Co-Signing Physician Notes Patient seen and examined, chart reviewed, case discussed with Abel Hayden PA-C and I agree with the assessment and plan as above except as otherwise noted Labs and images reviewed 58-year-old female with past medical history of COPD, ongoing tobacco use, hypertension, palpitations, pulmonary hypertension who presented with wheezing, increased work of breathing, and hypoxia. Has not been able to smoke as much and is currently only smoking around 2 cigarettes/day. Patient received Rocephin/azithromycin in the ER for empiric coverage. On assessment has a mild leukocytosis, chest x-ray does not show any signs of superimposed pneumonia and procalcitonin is negative. Will discontinue Rocephin and continue azithromycin for COPD exacerbation. Patient was tachypneic and alkalotic although pCO2 is high at 56. Suspect chronic respiratory hypercapnia with acute relative acidosis due to tachypnea. Repeat VBG every 6 hours ordered. BiPAP deferred on admit due to potential for worsening alkalosis PG Care Time/CCT Total # of Minutes Spent Total Time Spent with Patient: Total time spent is greater than 50% in coordination of care (as documented) at patient's floor/unit and/or counseling patient: Coding [place] [address] INT INP/OBS CARE 3/75MIN Patient Type Established Medical Decision Making High Complexity Diagnoses Hypoxia R09.02 COPD exacerbation J44.1 Hypertension I10 Tobacco abuse Z72.0
[2023-12-23] MEDS: cefTRIAXone SODIUM 2,000 MG in DEXTROSE 5 % MINI-B 50 ML IV STA (16:00)
[2023-12-23] MEDS: guaiFENesin 600 MG TABCR PO SCH (16:05)
[2023-12-23] MEDS: ALBUT/IPRATROP 3MG/0.5MG NEB 3 ML VIAL NEB SCH (16:10)
[2023-12-23] MEDS: NICOTINE 7 MG/24 HR TDSY TD SCH (16:57)
[2023-12-23] MEDS: PANTOprazole 40 MG TAB PO SCH (16:57)
[2023-12-23] MEDS: AZITHROMYCIN 500 MG in DEXTROSE 5% 250 ML IV STA (16:57)
[2023-12-23] MEDS ORDERED: methylPREDNISolone 125 MG/2 ML VIAL IV SCH (17:00)
[2023-12-23] MEDS ORDERED: diazePAM 5 MG TABLET PO PRN (17:03)
--- NOTE | 2023-12-23 17:49 | Electrocardiogram Report ---
Test Reason : Blood Pressure : / mmHG Vent. Rate : 081 BPM Atrial Rate : 081 BPM P-R Int : 128 ms QRS Dur : 072 ms QT Int : 372 ms P-R-T Axes : 054 083 069 degrees QTc Int : 432 ms Normal sinus rhythm Normal ECG When compared with ECG of 10-NOV-2012 00:28, Nonspecific T wave abnormality no longer evident in Inferior leads Confirmed by Milton Chavez ([id number]) on 12/23/2023 5:48:46 PM Referred By: Confirmed By:Nikunj Chavez
[2023-12-23] MEDS: methylPREDNISolone 40 MG in SYRINGE 0 ML IV SCH (18:09)
[2023-12-23 19:16] LABS: Base Excess VBG 5.1 mEq/L; HCO3 VBG 32 mmol/L; Oxygen Saturation VBG 92.7 %; PCO2 VBG 57 mmHg (38-50); PO2 VBG 64 mmHg; pH VBG 7.36 (7.36-7.41)
[2023-12-23] MEDS: BUDESONIDE 0.5 MG/2 ML VIAL (PULMICORT) NEB SCH (20:10)
[2023-12-23] MEDS: FORMOTEROL 20 MCG/2 ML VIAL NEB SCH (20:10)
[2023-12-23] MEDS ORDERED: methylPREDNISolone 40 MG in SYRINGE 0 ML IV SCH (21:00)
[2023-12-23] MEDS: ENOXAPARIN INJ 40 MG/0.4 ML SYR SQ SCH (21:35)
[2023-12-23 23:06] LABS: Base Excess VBG 8.8 mEq/L; HCO3 VBG 37 mmol/L; PCO2 VBG 65 mmHg (38-50); PO2 VBG 79 mmHg; pH VBG 7.36 (7.36-7.41)
[2023-12-24] MEDS: ACETAMINOPHEN 325 MG TAB PO PRN (02:06)
[2023-12-24 06:18] LABS: Basophils # (auto) 0.03 K/uL (0.00-0.20); Basophils % (auto) 0.3 %; Hematocrit (blood only) 41.2 % (37.0-47.0); Immature Granulocytes # (auto) 0.14 K/uL (0.01-0.20); Immature Granulocytes % (auto) 1.2 %; Lymphocytes # (auto) 0.95 K/uL (1.20-3.40); Lymphocytes % (auto) 8.1 %; Mean Corpuscular Hemoglobin 29.1 pg (25.0-34.0); Mean Corpuscular Hgb Conc 31.6 g/dL (32.0-36.0); Mean Corpuscular Volume 92.2 fL (80.0-100.0); Mean Platelet Volume 9.4 fL (9.4-12.4); Monocytes # (auto) 0.35 K/uL (0.11-0.59); Neutrophils # (auto) 10.24 K/uL (1.40-6.50); Neutrophils % (auto) 87.4 %; Platelet Count 241 K/uL (130-400); RDW Coefficient of Variation 14.1 % (11.5-14.5); RDW Standard Deviation 47.8 fL (36.4-46.3); Red Blood Count 4.47 M/uL (4.20-5.40); White Blood Count 11.71 K/ul (4.8-10.8)
[2023-12-24 06:29] LABS: Calcium 9.6 mg/dl (8.6-10.3); Est GFR (African American) 114.8 ml/min; Est GFR (Non-African American) 99.1 ml/min; Magnesium 2.4 mg/dl (1.7-2.4); Potassium 4.8 mmol/L (3.5-5.1)
[2023-12-24] MEDS ORDERED: ALBUT/IPRATROP 3MG/0.5MG NEB 3 ML VIAL NEB PRN (07:54)
[2023-12-24] MEDS: hydrALAZINE HCL 25 MG TAB PO SCH (08:18)
[2023-12-24] MEDS: LOSARTAN POTASSIUM 50 MG TAB PO SCH (08:19)
[2023-12-24] MEDS: ROSUVASTATIN CALCIUM 10 MG TAB PO SCH (08:19)
[2023-12-24] MEDS: dilTIAZem HCL 180 MG CAPCR PO SCH (08:19)
--- NOTE | 2023-12-24 11:04 | Hospitalist Progress Note ---
Date of Service December 24, 2023 Assessment & Plan (1) Acute respiratory failure with hypercapnia: Plan: - Presented to the ED from her PCP's office due to progressive SOB, cough, and wheezing over the past week, was noted to be hypoxic with SpO2 in the 80's. A dmitted for management of ARF with hypercapnia secondary to COPD exacerbation. - Currently hemodynamically stable and stable on Oxymask at 7 lpm and oxygen when at bedside supratherapeutic (96%). Titrate oxygen as needed with goal of 88-92% -Morning labs showing persistent leukocytosis (11) with greater neutrophilic predominance. Suspect that steroids may be playing a role in this. Patient has not had a fever. Will continue to monitor. - Continue Solu-medrol bid, Duonebs, Budesonide/fortmoterol nebs bid, incentive spirometry, flutter valve therapy - abx -- Azithromycin (2) Hypertension: Plan: -Stable -Continue hydralazine and losartan (3) Tobacco abuse: Plan: -Nicotine patch ordered -Patient refers she has been smoking a few cigarettes a day, but has been trying to stop. She has tried Chantix in the past and has not tolerated it well. Disc ussed the possibility of using naltrexone versus other medical therapy versus behavioral therapy to help her in stopping smoking and she is open to the discussion. Encouraged to continue discussions with PCP after discharge. (4) COPD (chronic obstructive pulmonary disease): Plan: - See ARF, hypercapnic Plan Dispo: Patient not on home oxygen at baseline; stabilize and consider checking saturation with ambulation prior to discharge Diet: HH GI ppx: Protonix VTE ppx: Lovenox FULL CODE Admission and Anticipated Discharge Date Admission Date: December 23, 2023 Supervising Physician Co-Signing Physician Notes I personally examined the patient and verified wesley points of history and exam, discussed case, and agree with decision making and plan documented by Dr. Watts. Patient with acute hypoxic respiratory failure in setting of chronic hypercapnia due to COPD. Patient endorses improvement of symptoms since admission with oxyge n supplementation, with reported pulse ox at home in 70s prior to admission. Discussed goal 88-92%. Patient hopeful for discharge home tomorrow with oxygen if able. Reviewed importance of smoking cessation at length, patient contemplative and motivated to quit, support line number (8-013-BTSA-NOW) and encouragement provided. Subjective Ms. Urban is a 58-year-old female with past medical history of COPD current tobacco use where she refers smoking a few cigarettes a day hypertension and pulmonary hypertension who came to the emergency department from her PCPs office due to increased work of breathing and hypoxia. She refers that she has been feeling somewhat ill on and off for the last 3 months, but last week had flu like sxs. She was admitted for management of COPD exacerbation. Today she was evaluated at bedside and she was found alone, awake, alert, and oriented in all spheres. She is in no acute distress, and refers being able to breathe a lot better compared to when she arrived to the hospital initially. She is currently using an oxime mask at 8 L/min and saturating at 97% when evaluated at bedside. Patient has been able to walk to the bathroom and does note that at these time she her oxygen saturation falls to the 80s. She has not been feeling shortness of breath, or slight dyspnea on exertion as she was before she arrived to the hospital. She denies fevers chest pain fatigue weakness or pain, or any other systemic symptoms. Review of Systems Review of Systems: As per HPI. Physical Exam Physical Exam: General: Alert. Oriented to person, time, and place. Afebrile. No acute distress. Eyes: pupils equal and reactive to light bilaterally, extraocular movements intact. Cardiac: Regular rate and rhythm, no murmurs/rubs/gallops. Respiratory: Expiratory wheezes heard throughout. No increased work of breathing. Symmetrical chest rise. No respiratory distress. Abdomen: Soft, nontender, nondistended. Bowel sounds present. Lower Extremities: No lower extremity edema or swelling. No deep calf pain. Navarro's negative bilaterally. Psych: Euthymic affect. Mood and affect congruence. Regular speech rate and content. Results & Data Results & Data Vital Signs (Past 12 Hours) Vital Signs Temp Pulse Pulse Resp BP BP Pulse Ox 12/24/23 08:20 12/24/23 07:21 70 20 96 12/24/23 07:18 59 L 12/24/23 07:17 36.4 C L 67 20 145/74 H 97 12/24/23 04:26 36.5 C 96 H 20 167/79 H 94 12/24/23 02:26 63 12/24/23 01:49 12/24/23 01:00 36.4 C L 71 18 168/85 H 98 12/24/23 00:00 79 24 181/83 H 96 12/24/23 00:00 79 24 181/83 H 96 12/23/23 23:47 19 165/98 H 94 12/23/23 23:00 72 24 164/85 H 96 O2 Del Method O2 Flow Rate 12/24/23 08:20 Oxymask 7 12/24/23 07:21 Oxymask 10 12/24/23 07:18 12/24/23 07:17 Oxymask 6 12/24/23 04:26 Oxymask 10 12/24/23 02:26 12/24/23 01:49 Oxymask 9 12/24/23 01:00 Oxymask 10 12/24/23 00:00 Oxymask 10 12/24/23 00:00 Oxymask 10 12/23/23 23:47 Oxymask 10 12/23/23 23:00 Oxymask 10
[2023-12-24] MEDS ORDERED: cefTRIAXone SODIUM 2,000 MG in DEXTROSE 5 % MINI-B 50 ML IV SCH (16:00)
[2023-12-24] MEDS: AZITHROMYCIN 500 MG in DEXTROSE 5% 250 ML IV SCH (17:39)
[2023-12-25 08:46] LABS: Basophils # (auto) 0.04 K/uL (0.00-0.20); Basophils % (auto) 0.2 %; Hematocrit (blood only) 42.9 % (37.0-47.0); Hemoglobin 13.3 g/dl (12.0-16.0); Immature Granulocytes # (auto) 0.16 K/uL (0.01-0.20); Immature Granulocytes % (auto) 0.9 %; Lymphocytes # (auto) 1.15 K/uL (1.20-3.40); Lymphocytes % (auto) 6.5 %; Mean Corpuscular Hemoglobin 28.7 pg (25.0-34.0); Mean Corpuscular Volume 92.7 fL (80.0-100.0); Mean Platelet Volume 9.2 fL (9.4-12.4); Monocytes # (auto) 0.89 K/uL (0.11-0.59); Neutrophils # (auto) 15.48 K/uL (1.40-6.50); Neutrophils % (auto) 87.4 %; Platelet Count 293 K/uL (130-400); RDW Coefficient of Variation 14.3 % (11.5-14.5); RDW Standard Deviation 48.3 fL (36.4-46.3); Red Blood Count 4.63 M/uL (4.20-5.40); White Blood Count 17.72 K/ul (4.8-10.8)
[2023-12-25 08:49] LABS: BUN Creatinine Ratio 36.1 (10-20); Calcium 9.8 mg/dl (8.6-10.3); Creatinine Clr Calc Pharmacy 114.7 ml/min; Est GFR (African American) 114.2 ml/min; Est GFR (Non-African American) 98.5 ml/min; Potassium 4.7 mmol/L (3.5-5.1)
--- NOTE | 2023-12-25 10:58 | Discharge Summary ---
Date of Service December 25, 2023 Admission HPI Per Admitting Provider Anjelica is a 58 yr old female with a PMH significant for COPD, tobacco abuse, HTN, palpitations, Pulmonary HTN who presented to the [facility] ED via EMS from her PCP's office due to increased WOB and hypoxia. On arrival to the ED she was noted to be hypoxic with SpO2 in the low 80's to high 70's on RA and tachycardic with HR in the 90's but otherwise stable/ Labs were significant for a leukocytosis of 11 with neutrophil predominance of 8.8, VBG pH of 7.42 with pCO2 of 56 and pO2 WNL, negative procal, and negative full respiratory biofire. Chest xray was read as "No acute abnormalities and in particular no radiographic evidence of pneumonia.". Prior to admission the patient was given 1L NSS, an hour long albuterol treatment, and 1gm IV mag sulfate. At the time of the exam the patient was sitting in bed an appears comfortable, she is currently stable on 6L NC. She states that she and her developed GI symptoms including nausea and non-bloody diarrhea last week. She then developed increased respiratory symptoms including increased cough frequency, mucus production, and SOB. She started a home prednisone taper on 12/21, she started with 40 mg PO daily for the past 2 days without significant improvement. She is currently smoking "a few" cigarettes daily and has been unable to completely quit. She states that she was only able to smoke 2 cigarettes this am then made went to her PCP appointment. She feels much improved after the initial treatment she received in the ED but is not back to her baseline yet. She does not use home O2 at baseline. She is a full code and would want her to make medical decisions for her if she cannot make them herself. Please refer to Dr. Carcamo's alteration for any changes to the treatment plan Admission Exam Per Admitting Provider General: In no acute distress, stated age, ill appearing but non-toxic HEENT: Normocephalic, atraumatic, no scleral icterus, pupils around round, symmetrical, and reactive to light, moist mucus membranes, trachea midline, no thyromegaly Chest/Pulm: No respiratory distress, symmetrical chest expansion, mild expiratory wheezing throughout Cardiac: RRR, no murmurs noted Abdomen: Negative for ascites and bruising, normoactive bowel sounds, soft, non- tender to palpation throughout Musculoskeletal: Symmetrical and without signs of acute trauma, upper and lower extremities with full ROM, no atrophy, spasticity, or flaccidity Extremities: Radial, dorsalis pedis, and posterior tibial pulses are intact and symmetrical, no edema noted in the BL LE's Skin: Warm, dry, no rashes , lesions, or scars noted Neuro: Alert and oriented to person, place, month, year, and president, no focal defects, no tremors noted Psych: No acute distress, calm and cooperative during the exam Principal Diagnosis COPD exacerbation Discharge Exam General: Alert. Oriented to person, time, and place. Afebrile. No acute distress. Eyes: pupils equal and reactive to light bilaterally, extraocular movements intact. Cardiac: Regular rate and rhythm, no murmurs/rubs/gallops. Respiratory: Expiratory wheezes heard throughout. No increased work of breathing. Symmetrical chest rise. No respiratory distress. Abdomen: Soft, nontender, nondistended. Bowel sounds present. Lower Extremities: No lower extremity edema or swelling. No deep calf pain. Navarro's negative bilaterally. Psych: Euthymic affect. Mood and affect congruence. Regular speech rate and content. Discharge Data Allergies Allergy/AdvReac Type Severity Reaction Status Date / Time erythromycin base Allergy Severe RASH/PROBLEMS Verified 12/23/23 10:06 BREATHING hydrochlorothiazide Allergy Unknown CAN'T Verified 12/23/23 10:06 REMEMBER RX morphine AdvReac Mild NAUSEA/VOMI Verified 12/23/23 10:06 TTING Consultations 12/23/23 13:57 ED Decision to Admit Stat Hospital Course (1) Acute respiratory failure with hypercapnia: (2) Hypertension: (3) Tobacco abuse: (4) COPD (chronic obstructive pulmonary disease): Plan Ms. Urban is a 58-year-old female with past medical history of COPD was admitted after having short time of shortness of breath associated with cough and wheezing for a week. At the time when she arrived to the emergency department she was found to be hypoxic with an oxygen saturation in the 80s and so she was admitted for management of acute respiratory failure with hypercapnia secondary to a COPD exacerbation. Patient was treated with twice daily Solu- Medrol, azithromycin, flutter valve therapy, and incentive spirometry. She was also managed with oxygen administration through nasal cannula with a goal of maintaining oxygen saturations between 88 and 92%. Throughout this time patient had remained afebrile but to physical exam had persistent end expiratory wheez es. During admission the patient had admitted to smoking a few cigarettes a day. Counseling was provided to patient regarding stopping tobacco use, since this is, the biggest risk factors that can contribute to worsening COPD. Today she were found to be more stable for discharge. However, patient still in need of oxygen and some two-step was ordered, which revealed the need for 2 L of oxygen when at rest and 6 L of oxygen during exertion. Coordinated home oxygen with case management and patient discharge with oxygen therapy, as well as 3 days of azithromycin 500 mg daily and prednisone taper therapy. Patient in agreement. All questions answered. Total Time Total Time Spent Total Time Spent (In Minutes): As per attending attestation. Discharge Plan Discharge Items Patient Disposition: Home - Self-Care Reason For Visit: ACUTE HYPOXIC RESPIRATORY FAILURE Discharge Diagnosis: COPD exacerbation Activity: Per Instructions section Non-emergency contact: Primary Care Provider and Professor Of Geography Call non-emergency contact if: your symptoms worsen and your temperature is above 101 Follow-up/Referrals: Milton Meléndez MD [Primary Care Provider] - 12/31/23 9:30 am (Appt will be with Zoë Willoughby) Sarina Melendez MD, FCCP [Physician] - () Diet: Heart Healthy Addtl Attending Provider Instructions: You were admitted to the hospital for management of a COPD exacerbation related to a recent upper respiratory tract infection. You were treated with antibiotics and steroids, as well as oxygen. Today your respiratory status was improved, but not fully resolved, and you still require oxygen at home. We will be discharging you today with a temporary period of oxygen until your respiratory status is at your usual state. A script for Azithromycin (antibiotic) and steroids will be sent to your pharmacy as well. A discharge summary will be sent to your primary care physician to ensure continuity of care. Please bring this discharge summary with you to your next office appointment so that your provider can review it at that time. Follow-up appointments: Make a follow-up appointment with your PCP within the next week. It is very important that you follow up with them shortly after discharge from the hospital. Please make a follow up appointment to establish care with a tank cooper. It's important to get regular follow up with a tank cooper given your history of lung disease. Keep all your follow-up appointments as already scheduled. If you cannot make an appointment, notify your provider. Medications: Your medication list has been reviewed and reconciled upon discharge to ensure accuracy and continuity of care. An updated list of all your medications is included with your hospital discharge paperwork. Please review this list closely, and make note of any changes. If you have any issues filling these prescriptions, please call [phone] and ask to leave a message for Dr. Watts. Take your medications as instructed; do not skip a dose of your medicines. Make sure all of your doctors know every medicine you are taking (including [id number] medicines, vitamins, and supplements). Call your primary care provider before taking any new medicines (including over- the-counter medicines, vitamins, and supplements), because some of these may interact with your current medications, or may make your symptoms worse. Tell your primary care provider if you cannot afford your medications. CONTACT YOUR PRIMARY CARE PROVIDER if you experience any of the following: Worsening of symptoms Fever, chills, or fatigue Difficulty following your treatment plan, or difficulty taking medications CALL 911 OR GO TO THE EMERGENCY DEPARTMENT if you experience any of the following: Sudden, severe abdominal pain or nausea/vomiting Severe chest pain, or chest pain that radiates (moves) to your jaw or arm Sudden, severe shortness of breath or difficulty breathing Thank you for allowing us to participate in your care. Pending Studies at Discharge: No Stand-Alone Forms: My [facility], Smoking Cessation Medications and DC Order Prescriptions: New azithromycin 500 mg tablet 500 mg PO DAILY 3 Days Qty: 3 0RF prednisone 10 mg tablet 10 mg PO DAILY Qty: 30 0RF Rx Instructions: Take 4 tabs of 10mg (40mg) for 3 days, then 3 tabs of 10mg (30mg) for 3 days, 2 tabs of 10mg (20mg) for 3 days, and then 1 tab of 10mg for 3 days Continued diazepam 5 mg tablet 5 mg PO DAILY PRN (Reason: Anxiety) Rx Instructions: for injections diltiazem HCl 360 mg capsule,extended release 24 hr 360 mg PO DAILY Qty: 90 3RF Patient Comments: TAKES QAM losartan 100 mg tablet 100 mg PO DAILY Qty: 90 3RF Patient Comments: QAM rosuvastatin 10 mg tablet 10 mg PO DAILY Qty: 90 3RF albuterol sulfate [ProAir HFA] 90 mcg/actuation HFA aerosol inhaler 2 puff INH QID PRN (Reason: shortness of breath or wheezing) Qty: 25.5 5RF hydralazine 25 mg tablet 25 mg PO DAILY Qty: 90 3RF Trelegy Ellipta 200-62.5-25 mcg blister with device 1 inh inhalation DAILY Qty: 3 3RF glucosamine-chondroitin [Osteo Bi-Flex] 250-200 mg Tablet 2 tab PO QAM lidocaine 5 % adhesive patch,medicated 1 patch topical DAILY prednisone 10 mg tablet 10 mg PO .TAPER UD Rx Instructions: Take 4 tabs daily x 4 days, 3 tablets daily x 4 days, 2 tablet daily x 4 days then 1 tablet daily x 4 days. PO daily in the morning; Discharge Orders: Discharge Order (Routine); Ordered 12/25/23 Ordered By: Faby Owens/Other Patient Handouts: COPD: Chronic Coughing, COPD Quit Smoking, COPD Controlled Breathing Dc Admission Data Admit Date/Time: 12/23/23 15:25 Attending Provider: Nely Valdivia Admit Provider: Geronimo Carcamo Primary Care Provider: Milton Meléndez Other Providers: Geronimo Carcamo Other Interventions: Discharge Summary Assessment (RN) Last Done: 12/25/23 16:10 Supervising Physician Co-Signing Physician Notes I personally examined the patient and verified wesley points of history and exam, discussed case, and agree with decision making and plan documented by Dr. Watts. Patient with acute hypoxic respiratory failure in setting of chronic hypercapnia due to COPD with improvement of symptoms. Patient interested in discharge, she states she feels much improvement in her breathing, two-step performed and will need home oxygen, discussed goal of pulse ox 88-92% and PCP follow-up. Will continue steroid taper and completion of azithromycin. Patient referred to pulmonology outpatient. Warning signs were reviewed for recommendations to return to ED. Patient motivated to quit smoking, she does not want to use a nicotine patch, states that she has a support of her and family, her father from lung cancer, encourage continued efforts to maintain cessation and provided her resources.
== END 2023-12-25 16:53 | disposition home or self-care (01) | DRG 190 ==
LOC: ED 12:10 → EDINP 15:25 → SUATTDRO 15:25 → 2N 12-24

== ENCOUNTER 2025-10-24 10:12 | Observation (INO) ==
--- NOTE | 2025-10-05 13:57 | PAT Medication Instructions ---
Medication Instructions Date of Service October 05, 2025 Home Medications Medication Instructions Recorded diltiazem HCl 360 mg capsule,24 360 mg PO QAM #90 caps 02/08/25 hr,extended release fluticasone fur. 200 mcg-umeclid 1 inh inhalation DAILY #3 Inhalers 03/10/25 62.5 mcg-vilant 25 mcg inhalat.powder (Trelegy Ellipta) losartan 100 mg tablet 100 mg PO QAM #90 tabs 05/09/25 rosuvastatin 10 mg tablet 10 mg PO QAM #90 tabs 05/09/25 albuterol sulfate 90 mcg/actuation 2 puff inhalation QID PRN 05/18/25 aerosol inhaler shortness of breath or wheezing #25.5 grams naproxen 500 mg tablet 500 mg PO BID PRN pain #180 tabs 05/24/25 glucosamine-chondroitin 250 mg-200 mg tablet (Osteo Bi-Flex) 2 tab PO QAM diltiazem HCl 360 mg capsule,24 hr,extended release 360 mg PO QAM fluticasone fur. 200 mcg-umeclid 62.5 mcg-vilant 25 mcg inhalat.powder (Trelegy Ellipta) 1 inh inhalation DAILY losartan 100 mg tablet 100 mg PO QAM rosuvastatin 10 mg tablet 10 mg PO QAM albuterol sulfate 90 mcg/actuation aerosol inhaler 2 puff inhalation QID PRN naproxen 500 mg tablet 500 mg PO BID PRN Continue as directed fluticasone fur. 200 mcg-umeclid 62.5 mcg-vilant 25 mcg inhalat.powder (Trelegy Ellipta) 1 inh inhalation DAILY ASK your surgeon for instructions naproxen 500 mg tablet 500 mg PO BID PRN STOP taking 2 weeks before surgery (or as soon as possible if surgery is within 2 weeks) glucosamine-chondroitin 250 mg-200 mg tablet (Osteo Bi-Flex) 2 tab PO QAM DO NOT take the morning of surgery losartan 100 mg tablet 100 mg PO QAM Take morning of surgery With a small sip of water, OTHERWISE NOTHING TO EAT OR DRINK AFTER MIDNIGHT: diltiazem HCl 360 mg capsule,24 hr,extended release 360 mg PO QAM rosuvastatin 10 mg tablet 10 mg PO QAM albuterol sulfate 90 mcg/actuation aerosol inhaler 2 puff inhalation QID PRN(use if needed; please bring with you to hospital day of surgery if possible) Take evening before surgery albuterol sulfate 90 mcg/actuation aerosol inhaler 2 puff inhalation QID PRN(if needed) Other Notes If you have any questions please call us at [phone] or [phone] or [phone] or [phone]
--- NOTE | 2025-10-10 12:08 | Anesthesiology Consultation ---
Date of Service October 10, 2025 Assessment & Plan (1) Encounter for pre-operative examination: - Infectious disease screening: Per assessment on 10/10/25- No known recent infectious disease contacts. Current rhinorrhea onset 10/09/25. Patient started prednisone rescue kit 10/09/25 (has on hand at home for hx COPD; takes as needed) given rhinorrhea. Denies any other infectious disease related symptoms including wheezing, n/v; states chronic cough is at baseline/unchanged. Prednisone course will be completed prior to surgery. DOS 10/24/25. Symptom onset > 10 days prior to surgery. Patient advised to contact PCP/surgeon/PAT if not at baseline prior to surgery. [place] [facility]06/[place]: "Estimated risk probability for katerina-operative SRINATH.. Vital signs reviewed and stable. AAA stable, no change in size.. From a general medical standpoint, patient is of acceptable risk for surgery and is medically cleared for removal of malpositioned posterior cervical instrumentation.." - PCP note 10/06/25: "Is at low risk for the above mentioned surgery" Chart Review Chart Review: Acceptable Risk for Surgery and Patient seen in Pre Admission Testing Teaching & Discussion Pre-Anesthesia Teaching/Discussion Notes: Instructed NPO after midnight before surgery,except medications with 15 cc of water. Medication instructions provided according to the PAT guidelines. History Surgery Operation Date: 10/24/25 07:30 Proposed Procedures p Removal Cervical Posterior Instrumentation, Spinal Cord Monitoring - Jesus Thorne MD Height/Weight Height: 5 ft 10.5 in Weight: 92.5 kg Allergies Allergy/AdvReac Type Severity Reaction Status Date / Time erythromycin base Allergy Severe Difficulty Verified 10/06/25 16:06 breathing, Rash, Nausea, Vomiting hydrochlorothiazide AdvReac Severe Gastrointestinal Verified 10/06/25 16:06 Upset, Vomiting morphine AdvReac Severe Nausea, Verified 10/06/25 16:06 Vomiting oxycodone AdvReac Intermediate nausea/vomiting Verified 10/06/25 16:06 w/Percocet Medications Home Medications Medication Instructions Recorded Confirmed Last Taken glucosamine-chondroitin 250 mg-200 2 tab PO QAM 07/23/21 10/06/25 12/22/24 mg tablet (Osteo Bi-Flex) diltiazem HCl 360 mg capsule,24 360 mg PO QAM #90 caps 02/08/25 10/06/25 Unknown hr,extended release fluticasone fur. 200 mcg-umeclid 1 inh inhalation DAILY #3 Inhalers 03/10/25 10/06/25 Unknown 62.5 mcg-vilant 25 mcg inhalat.powder (Trelegy Ellipta) losartan 100 mg tablet 100 mg PO QAM #90 tabs 05/09/25 10/06/25 Unknown rosuvastatin 10 mg tablet 10 mg PO QAM #90 tabs 05/09/25 10/06/25 Unknown albuterol sulfate 90 mcg/actuation 2 puff inhalation QID PRN 05/18/25 10/06/25 Unknown aerosol inhaler shortness of breath or wheezing #25.5 grams naproxen 500 mg tablet 500 mg PO BID PRN pain #180 tabs 05/24/25 10/06/25 Unknown Past Medical History Medical History Adrenal nodule Monitoring Abd/Pelvis CT 05/26/24: "Stable 3 cm left adrenal adenoma" COPD (chronic obstructive pulmonary disease) [facility] Coronary artery calcification seen on CAT scan Per records Degenerative disc disease Dilation of pulmonary artery [facility] History of COVID-19 10/2024, resolved History of respiratory failure Hx per records, patient denies Hx of colonic polyp Hyperlipidemia Hypertension Infrarenal abdominal aortic aneurysm (AAA) without rupture Monitoring US AAA 06/09/25: "No change in a 3.3 cm infrarenal abdominal aortic aneurysm since CT of May 26, 2024." Osteoarthritis Pulmonary HTN Echo 06/2025: Mildly elevated estimated RVSP Temporomandibular joint disorder + Clicking, no locking Exercise / Class Metabolic Activity II 4-5 Yardwork/Stairs/Walk up hill (one FS: No CP, no SOB) Past Family History Family History Father Family history of diabetes mellitus Denies family history of Ovarian cancer Prostate cancer Myocardial infarction Breast cancer Colorectal cancer Past Surgical History Surgical History History of colonoscopy [facility], 12/31/24 History of endometrial ablation History of lumbar fusion x5, hardware present History of mandibular surgery Multiple History of tonsillectomy and adenoidectomy Hx of fusion of cervical spine x4 (total of 3/4 levels fused), hardware present [place] teeth removed Past Anesthesia History No Hx of Anesthesia Complications and No Family Hx of Anesthesia Complications History of PONV No Hx of PONV and No Hx of Motion Sickness Social History Smoking Status: Former smoker tobacco type: cigarettes Smoking cigarettes per day: 1 pack Do You Dip or Chew Tobacco: No Smoking End Date: Quit 11/2023 Hx Alcohol Use: No Hx Substance Use: No substance use type: does not use Review of Systems Chronic cough, at baseline per COPD hx. Patient denies chest pain, shortness of breath, dyspnea on exertion, fever, chills, wheezing, palpitations. Physical Exam Vital Signs BP 129/78 P 85 TEMP 98.0 SP02 91%RA RESP 16 Physical Mildly decreased cervical extension range of motion. Full TMJ range of motion. TMD 3 finger breaths Mallampati Score III Dentition: upper full plate, 6 remaining on lower (doesn't wear lower partial) Lungs: clear to auscultation Cardiac: regular rate and rhythm, no murmurs noted Spine: normal Carotid arteries: negative bruit Extremities: no LE edema Lab Results Anesthesia Preop Results Results Anesthesia Widget: WBC 8.91 K/ul (4.8-10.8) 10/10/25 Hgb 12.8 g/dL (12.0-16.0) 10/10/25 Hct 40.0 % (37.0-47.0) 10/10/25 Plt 218 K/uL (130-400) 10/10/25 Na 142 mmol/L (136-145) 10/10/25 K 4.3 mmol/L (3.5-5.1) 10/10/25 Cl 106 mmol/L (98-107) 10/10/25 CO2 29 mmol/L (21-32) 10/10/25 BUN 26 mg/dl (6-23) H 10/10/25 Creat 0.74 mg/dl (0.6-1.2) 10/10/25 Glucose Level 135 mg/dl (70-99(Fasting)) H 10/10/25 PT 10.6 Seconds (9.0-12.0) 10/10/25 PTT 26 Seconds (21-31) 10/10/25 INR 1.0 (0.9-1.1) 10/10/25 HA1c 6.2 % (4.5-5.6) H 10/10/25 Blood Type O Positive 10/10/25 Antibody Screen NEGATIVE 10/10/25 Testing Electrocardiogram Date: 10/10/25 NSR with sinus arrhythmia. 73bpm. "Normal ECG" Chest X-Ray Date: 10/10/25 Findings: The lungs are clear. The cardiomediastinal silhouette is within normal limits. No pleural effusion or pneumothorax. The heart size appears normal. No bony or soft tissue abnormality. Impression: Normal chest x-ray Echocardiogram Date: 06/17/25 EF 55-60%. Mild concentric LVH. LV wall motion is normal. Grade 1 diastolic dysfunction. Trace MR/NY/TR. Mildly elevated estimated RVSP. Elevated central venous pressure. Other Testing Abdomen/Pelvis CT Date: 05/26/24 IMPRESSION: 1. No acute intra-abdominal or intrapelvic abnormality. 2. Stable 3 cm left adrenal adenoma. 3. Aneurysmal dilation of the infrarenal abdominal aorta, 3.3 cm. US abdominal aortic aneurysm Date: 06/09/25 FINDINGS: The proximal abdominal aorta is ectatic, measuring 2.6 cm. Infrarenal abdominal aortic aneurysm measuring 3.3 cm is unchanged since CT of May 28, 2024. Extensive aortoiliac atherosclerotic plaque is again noted. The caliber of the bilateral common iliac arteries is normal. IMPRESSION: No change in a 3.3 cm infrarenal abdominal aortic aneurysm since CT of May 26, 2024. Cervical spine CT Date: 09/27/25 IMPRESSION: 1. Redemonstration of spinal fusion evident as posterior pedicle screws with interconnecting rods extending from C5 to C7 vertebral level with laminectomy noted at C6 level. Anteriorly interbody fusion done from C4 to C7 levels with anterior disc spacer seen at C4/C5 level. Hardware is causing streak artifacts, obscuring fine details. It is unchanged compared to prior scan, since 2022. Similar findings are also evident on 3D reconstruction. 2. Marked straightening of cervical lordosis denoting spastic paraspinal muscles.
[~2025-10-24 10:12] MED LIST changes: -BENZ-54 PO; +DEXAMETHASONE SOD INJ 4 MG/ML VIAL ONE; +GLYCOPYRROLATE 0.2 MG/ML VIAL ONE; -HYDR12.56 PO; +KETAMINE HCL 10MG/ML SYR ONE; -LEVO-366 PO; +LIDOCAINE 2% 2 ML VIAL/AMP(20MG/ML) INFIL ONE; -LOSA50TA6 PO; +MIDAZOLAM HCL 1 MG/ML 2ML VIAL ONE; +ONDANSETRON INJ 2 MG/ML 2 ML VIAL ONE; +PROPOFOL IV EMULSION 10 MG/ML 100 ML VIAL IV ONE; +PROPOFOL IV EMULSION 10 MG/ML 20 ML VIAL IV ONE; +REMIFENTANIL HCL 1 MG VIAL IV ONE; +ROCURONIUM BROMIDE 10 MG/ML 5 ML VIAL IV ONE; +SUGAMMADEX SODIUM 200 MG/2 ML VIAL IV ONE; -[UNRECOGNIZED DRUG - OTHER] PO
[2025-10-24] MEDS: LR 60ML/HR IV SCH (10:55)
[2025-10-24] MEDS ORDERED: HYDROmorphone INJ 2 MG/ML SYR/VIAL IV PRN (10:58)
[2025-10-24] MEDS ORDERED: ATROPINE SULFATE 0.1 MG/ML 10ML SYR IV PRN (10:58)
[2025-10-24] MEDS: ACETAMINOPHEN 500 MG TAB PO SCH (10:58)
[2025-10-24] MEDS ORDERED: PROMETHAZINE HCL 6.25 MG in SODIUM CHLORIDE 0.9% 50 ML IV PRN (10:58)
[2025-10-24] MEDS ORDERED: ONDANSETRON INJ 2 MG/ML 2 ML VIAL IV PRN ×2 (10:58→15:42)
--- NOTE | 2025-10-24 11:21 | History & Physical Bridge Note ---
Date of Service October 24, 2025 History & Physical Bridge Note I have examined the patient, reviewed the History & Physical and in the interval since the performance of the History & Physical I have noted the following changes of clinical significance: no changes noted, plan for removal posterior cervical instrumentation
[2025-10-24] MEDS ORDERED: ePHEDrine sulfate 50 MG/5 ML SYR ONE (12:06)
[2025-10-24] MEDS ORDERED: PHENYLEPHRINE HCL 10 MG/ML VIAL ONE (12:17)
[2025-10-24] MEDS ORDERED: ROCURONIUM BROMIDE 10 MG/ML 5 ML VIAL IV ONE (12:22)
[2025-10-24] MEDS: VANCOMYCIN HCL 1000MG/20ML VIAL ONE (12:43)
[2025-10-24] MEDS: ceFAZolin 330 MG/ML 1 GM VIAL ONE (12:47)
--- NOTE | 2025-10-24 13:08 | Operative Report ---
Post Operative Report Procedure Date: October 24, 2025 Pre & Post Diagnosis: Malposition of Spinal Instrumentation Cervical Radiculopathy Cervicalgia Time Out: I identified the patient and participated in the time-out. Procedure: Removal Posterior Cervical Segmental Instrumentation C5-7 ([id number]) Exploration of Fusion C5-6, C6-7 ([id number]) Surgeon: Jesus Thorne MD Braille Typist: Lucio Sandoval PA-C Estimated Blood Loss: 50 mL Specimens: Lateral Mass Screws and Rods Description of Procedure: Patient was brought to the operating room where anesthesia was induced. She was placed prone on the shaylee spine table and all bony prominences padded. She was prepped and draped in the usual sterile fashion, a verbal time out was performed and all were in agreement on patient and procedure. The skin was incised over her prior scar, utilized Bovie electrocautery to dissect down to the fascia and control bleeding. The old sutures were identified and cut out. I utilized the Bovie and retractors to dissect along the spinous processes and lamina to expose the C5, C6, C7 lamina and lateral masses as well as the posterior instrumentation. Set screws and rods were removed with universal removal set. The fusion mass at C4-5 and C5-6 was inspected. First, the bone/fusion mass was directly visualized for bridging bone. Second, forces were applied across the fusion level while monitoring for motion. Based on intraoperative inspection, the fusion was deemed solid. The lateral mass screws were also removed. The wound was thoroughly irrigated and hemostasis obtained. A Akira drain was placed exiting through the skin. The fascia was closed tightly with Stratafix suture. The subcutaneous and skin levels were also closed with suture and tatiana. Patient was awakened from anesthesia and taken to PACU in good condition.
[2025-10-24] MEDS: BUPIVACAINE 0.5 % 5 MG/1 ML MPF 30ML VIAL ONE (13:09)
--- NOTE | 2025-10-24 15:00 | Fluoroscopy Report ---
FL cervical 2-3V CLINICAL HISTORY: REMOVAL CERVICAL POSTERIOR INSTRUMENTATION COMPARISON STUDY: CT cervical spine 09/27/2025 FLUOROSCOPY TIME: 1.7 seconds FLUOROSCOPY IMAGES: 1 EXPOSURE DOSE: 0.25 mGy FINDINGS: Single image of the cervical spine demonstrates apparent removal of the posterior interbody sera and screw fusion hardware previously seen at C5-C7. Remaining hardware involving the vertebral b odies at C4-C7 remains [address]. Retractors are present along with an endotracheal tube. IMPRESSION: Fluoroscopic assistance as above. ACT 112: Negative or not required by law. Electronically signed by: Agustin Mares M.D. 10/24/2025 2:59 PM
[2025-10-24] MEDS ORDERED: diphenhydrAMINE Capsule 25 MG CAP PO PRN (15:42)
[2025-10-24] MEDS ORDERED: NALOXONE HCL 0.4 MG/1 ML VIAL/CARP IV PRN (15:42)
[2025-10-24] MEDS ORDERED: SOD PHOSPHATE/SOD BIPHOSPHATE ENEMA 132 ML BTL PR PRN (15:42)
[2025-10-24] MEDS ORDERED: HYDROmorphone INJ 0.5 MG/0.5 ML SYR IV PRN (15:42)
[2025-10-24] MEDS ORDERED: DO NOT ADMINISTER PNEUMOCOCCAL VACCINE PRN (15:42)
[2025-10-24] MEDS ORDERED: PROMETHAZINE 12.5 MG/50.5 ML BAG IV PRN (15:42)
[2025-10-24] MEDS ORDERED: DO NOT ADMINISTER FLU VACCINE PRN (15:42)
[2025-10-24] MEDS ORDERED: METOCLOPRAMIDE HCL INJ 5 MG/ML 2 ML VIAL IV PRN (15:42)
[2025-10-24] MEDS ORDERED: ALBUTEROL HFA 8 GM INHALER INH PRN (15:42)
[2025-10-24] MEDS ORDERED: ACETAMINOPHEN 1,000 MG/100 ML VIAL IV PRN (15:42)
[2025-10-24] MEDS ORDERED: MAGNESIUM HYDROXIDE SUSP 30 ML UDC PO PRN (15:42)
[2025-10-24] MEDS ORDERED: LORazepam 0.5 MG TAB PO PRN (15:42)
[2025-10-24] MEDS ORDERED: ALUMINUM/MAGNESIUM SUSP 30 ML UDC PO PRN (15:42)
[2025-10-24] MEDS ORDERED: FAMOTIDINE 20 MG TAB PO PRN (15:42)
[2025-10-24] MEDS ORDERED: ONDANSETRON 4 MG OD TAB PO PRN (15:42)
[2025-10-24] MEDS ORDERED: LORazepam Inj 0.5 MG in SYRINGE 0.25 ML IV PRN (15:42)
[2025-10-24] MEDS: LACTATED RINGER'S 1,000 ML IV SCH (16:25)
[2025-10-24] MEDS ORDERED: HYDROCODONE/ACETAMOPHEN 5/325MG TAB PO PRN (17:26)
[2025-10-24] MEDS: HYDROCODONE/ACETAMOPHEN 5/325MG TAB PO PRN (18:02)
--- NOTE | 2025-10-24 20:03 | Hospitalist Consultation ---
Date of Consultation October 24, 2025 Assessment & Plan (1) Orthopedic device, implant, or graft complication: (2) Retained orthopedic hardware: (3) Paresthesia and pain of both upper extremities: (4) Chronic obstructive pulmonary disease: (5) Hypertension: (6) Hyperlipidemia: Plan Pt is a 59 y/o F w/ a PMHx Significant for Cervical stenosis with radiculopathy, COPD w/ active tobacco use, HLD, HTN, Asthma, Infrarenal abdominal aortic aneurysm who presents for Removal Cervical Posterior Instrumentation, Spinal Cord Monitoring. #Cervical Stenosis | Cervical Radiculopathy - Removal of cervical posterior instrumentation w/ spinal cord monitoring 10/24 w/ Dr Thorne; Cervical Xray following procedure demonstrated removal of posterior instrumentation and fusion hardware from C5-C7 -10/24 Cervical Xray demonstrates remaining hardware from C4-C7 w/ retractors present + endotracheal tube (at time of procedure) -Post-operative care per primary care team #COPD - No acute concerns, Used tobacco x40 yrs, no longer uses -Encourage Albuterol, Trelegy #HLD | HTN - No acue concerns; EKG on 10/10 w/ NSR and confirmed by Dr Vang -Continue Losartan, Rosuvastatin, Diltiazem VTE Proph: SCDs Dispo: Med/Surg The hospitalist team will not be participating in the care of this patient. Thank you for allowing us to participate in the care of this patient, please reach out with any questions or concerns. History of Present Illness Reason for Consultation: Routine consult Attending Physician: Jesus Thorne MD History of Present Illness Pt is a 59 y/o F w/ a PMHx Significant for Cervical stenosis with radiculopathy, COPD w/ active tobacco use, HLD, HTN, A-fib, Asthma, Infrarenal abdominal aortic aneurysm who presents for Removal Cervical Posterior Instrumentation, Spinal Cord Monitoring. Pt was with posterior cervical instrumentation exending into the foramen on the lt side at 3 levels and at 1 level on the right side. Pt had been informed at time of initial instrument placement that it was malpositioned but had elected to keep the instrumentation in place at that time. She currently presents to have it removed d/t unbearable pain. Pt denies cough, congestion, sore throat, CP, palpitations, abd pain/discomfort, N/V/D, dizziness and lightheadedness Allergies Allergy/AdvReac Type Severity Reaction Status Date / Time erythromycin base Allergy Severe Difficulty Verified 10/24/25 10:11 breathing, Rash, Nausea, Vomiting hydrochlorothiazide AdvReac Severe Gastrointestinal Verified 10/24/25 10:11 Upset, Vomiting morphine AdvReac Severe Nausea, Verified 10/24/25 10:11 Vomiting oxycodone AdvReac Intermediate nausea/vomiting Verified 10/24/25 10:11 w/Percocet Home Medications Medication Instructions Recorded Confirmed Type glucosamine-chondroitin 250 mg-200 2 tab PO QAM 07/23/21 10/24/25 History mg tablet (Osteo Bi-Flex) diltiazem HCl 360 mg capsule,24 360 mg PO QAM #90 caps 02/08/25 10/24/25 Rx hr,extended release fluticasone fur. 200 mcg-umeclid 1 inh inhalation DAILY #3 Inhalers 03/10/25 10/24/25 Rx 62.5 mcg-vilant 25 mcg inhalat.powder (Trelegy Ellipta) losartan 100 mg tablet 100 mg PO QAM #90 tabs 05/09/25 10/24/25 Rx rosuvastatin 10 mg tablet 10 mg PO QAM #90 tabs 05/09/25 10/24/25 Rx albuterol sulfate 90 mcg/actuation 2 puff inhalation QID PRN 05/18/25 10/24/25 Rx aerosol inhaler shortness of breath or wheezing #25.5 grams naproxen 500 mg tablet 500 mg PO BID PRN pain #180 tabs 05/24/25 10/24/25 Rx Patient History Medical History Adrenal nodule Monitoring Abd/Pelvis CT 05/26/24: "Stable 3 cm left adrenal adenoma" COPD (chronic obstructive pulmonary disease) [facility] Coronary artery calcification seen on CAT scan Per records Degenerative disc disease Dilation of pulmonary artery [facility] History of COVID-19 10/2024, resolved History of respiratory failure Hx per records, patient denies Hx of colonic polyp Hyperlipidemia Hypertension Infrarenal abdominal aortic aneurysm (AAA) without rupture Monitoring US AAA 06/09/25: "No change in a 3.3 cm infrarenal abdominal aortic aneurysm since CT of May 26, 2024." Osteoarthritis Pulmonary HTN Echo 06/2025: Mildly elevated estimated RVSP Temporomandibular joint disorder + Clicking, no locking Surgical History History of colonoscopy [facility], 12/31/24 History of endometrial ablation History of lumbar fusion x5, hardware present History of mandibular surgery Multiple History of tonsillectomy and adenoidectomy Hx of fusion of cervical spine x4 (total of 3/4 levels fused), hardware present [place] teeth removed Family History Father Family history of diabetes mellitus Denies family history of Ovarian cancer Prostate cancer Myocardial infarction Breast cancer Colorectal cancer Social History Smoking Status: Former smoker Tobacco Type: Cigarettes Age Started Using Tobacco: 12; Age Quit Using Tobacco: 58; packs per day: 1; Cigarettes Per Day: 1 pack; Smoking End Date: Quit 11/2023; Second Hand Exposure: No; Do You Dip or Chew Tobacco: No; Tobacco Cessation Education Requested by Patient: No Hx Alcohol Use: No Hx Substance Use: No Preferred Language: Divehi Communication Ability: Effective Visual Impairment: No Limitations Hearing Ability: Normal Field Assembly Supervisor Required: No Beliefs That Will Affect Care: None marital status: Current Living Situation: Spouse current occupational status: employed current occupation: [employer] Other Information That Helps Us Care for You: No Feels Safe at Home: Yes Safety Concerns: Feels Safe At This Time Childhood Exposure to Second-Hand Smoke: No Diet: regular caffeine: Yes Dental Care, Regularly: No Physical Activity Frequency: Other Physical Activity Frequency Comment: 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 Seatbelt Use: always Sunscreen Use: No Assistive Devices: None Review of Systems Review of Systems: All systems reviewed & are unremarkable except as noted in Subjective Physical Exam Physical Exam: General: Pt is a 59 y/o overweight F in NAD in bed. VS: reviewed, unremarkable Skin: Dressing noted on cervical aspect of neck; Warm and dry; no lesions or ulcerations Respiratory: Prolonged expiration bilat, no other adventitious sounds noted. Chest expansion is full and symmetrical Cardio: RRR no murmurs Abdomen: Round, normoactive BS x4, nontender to palpation MSK: FROM of extremities, no deformities Extremities: no edema Neuro: A&Ox4, cooperative Results & Data Results & Data Vital Signs (Past 12 Hours) Vital Signs Temp Pulse Pulse Resp BP Pulse Ox O2 Del Method 10/24/25 18:18 70 18 118/71 92 Nasal Cannula 10/24/25 17:30 67 18 130/65 92 Room Air 10/24/25 16:35 98.1 F 57 L 18 158/89 H 94 Nasal Cannula 10/24/25 15:57 64 18 143/75 H 91 Nasal Cannula 10/24/25 15:20 Nasal Cannula 10/24/25 15:20 97.9 F 65 18 144/81 H 94 Nasal Cannula 10/24/25 15:15 54 L 14 149/78 H 94 Nasal Cannula 10/24/25 15:00 65 20 132/81 94 Nasal Cannula 10/24/25 14:45 52 L 12 115/81 93 Nasal Cannula 10/24/25 14:35 64 21 134/83 92 Nasal Cannula 10/24/25 14:25 61 15 127/79 93 Nasal Cannula 10/24/25 14:15 97.9 F 59 L 13 111/72 95 Nasal Cannula 10/24/25 14:05 50 L 12 133/73 94 Oxymask 10/24/25 13:55 60 12 146/86 H 97 Oxymask 10/24/25 13:45 70 15 143/85 H 98 Oxymask 10/24/25 13:38 96.8 F L 74 17 141/89 H 99 Oxymask 10/24/25 10:31 97.9 F 79 18 165/96 H 95 Room Air O2 Flow Rate 10/24/25 18:18 2 10/24/25 17:30 10/24/25 16:35 2 10/24/25 15:57 2 10/24/25 15:20 2 10/24/25 15:20 2 10/24/25 15:15 2 10/24/25 15:00 2 10/24/25 14:45 2 10/24/25 14:35 2 10/24/25 14:25 2 10/24/25 14:15 2 10/24/25 14:05 5 10/24/25 13:55 5 10/24/25 13:45 5 10/24/25 13:38 5 10/24/25 10:31 Diagnostic Findings Reviewed: Cervical Spine Xray Single image of the cervical spine demonstrates apparent removal of the posterior interbody sera and screw fusion hardware previously seen at C5-C7. Remaining hardware involving the vertebral bodies at C4-C7 remains in place. Retractors are present along with an endotracheal tube. PG Care Time/CCT Total # of Minutes Spent Total Time Spent with Patient: Total time spent is greater than 50% in coordination of care (as documented) at patient's floor/unit and/or counseling patient: Coding Level of Care Code 02532 IN/OBS CONSULT LVL 2,35M Diagnoses Orthopedic device, implant, or graft complication T84.9XXA Retained orthopedic hardware Z96.9 Paresthesia and pain of both upper extremities R20.2; M79.601; M79.602 Chronic obstructive pulmonary disease J44.9 Hypertension I10 Hyperlipidemia E78.5
[2025-10-24] MEDS: DOCUSATE SODIUM/SENNA 50/8.6MG TAB PO SCH (20:21)
[2025-10-25] MEDS: ACETAMINOPHEN 500 MG TAB PO PRN (01:02)
[2025-10-25] MEDS: KETOROLAC 30 MG/ML VIAL IV SCH (03:35)
[2025-10-25] MEDS: POLYETHYLENE (MIRALAX) 17 GM PACK PO SCH (05:46)
[2025-10-25 07:43] VITALS: BP 148/76; PULSE 74; RESP 18; TEMP 98.1; O2SAT 93
[2025-10-25] MEDS: LOSARTAN POTASSIUM 50 MG TAB PO SCH (08:57)
[2025-10-25] MEDS: ROSUVASTATIN CALCIUM 10 MG TAB PO SCH (08:57)
[2025-10-25] MEDS: FLUTICASONE FUROATE 200MCG 14 PUFFS/INHALER INH SCH (08:59)
[2025-10-25] MEDS ORDERED: NON-FORMULARY MEDICATION (Glucosamine-Chondroitin [Osteo Bi-Flex] 250-200 mg Tablet) PO SCH (09:00)
[2025-10-25] MEDS ORDERED: NON-FORMULARY MEDICATION (Fluticasone-Umeclidin-Vilanter [Trelegy Ellipta] 200-62.5-25 mcg INH SCH (09:00)
--- NOTE | 2025-10-25 09:01 | Orthopedic Progress Note ---
Date of Service October 25, 2025 Assessment & Plan (1) Orthopedic device, implant, or graft complication: * Continue Current Treatment * Disposition: home * Daily treatment: Physical Therapy/ Occupational Therapy per protocol * Weight bearing status: as tolerated * Continue to monitor for ABLA * Pain control * Drain will discontinue when less than 20 mL in 12 hour peroid. * Office/hospital f/u 2 weeks for progress check and staple/suture removal * Patient would like to go home today, may need to observe until tomorrow due to drain output. (2) S/P hardware removal: Subjective .Active Problems: S/p removal of posterior cervical instrumentation POD 1 59 y/o female s/p removal of posterior cervical instrumentation. Doing well overall, pain managed and improved function. Denies fever/chills, chest pain/SOB, nausea/vomiting. Otherwise no complaints. No numbness/tingling, weakness. No difficulty swallowing. Review of Systems All systems reviewed & are unremarkable except as noted in HPI & below. Physical Exam . * General: Alert and oriented, no acute distress * Constitutional: well-developed, well-nourished. * Respiratory: Normal respiratory effort, no distress * Gastrointestinal: No tenderness to palpation, no rigidity or guarding. * Skin: No rash or lesion. * Neurologic: Grossly normal * Musculoskeletal: Surgical dressing CDI. Drain intact. Cervical spine region without obvious deformity or overlying skin changes. Minimal tenderness of surgical region, otherwise no tenderness b/l UE. Neck ROM with minimal pain. AROM b/l shoulder flexion, elbow flexion/extension, wrist flexion/extension intact. Sensation intact radial/median/ulnar nerve distributions. Brisk capillary refill. Results & Data Results & Data Laboratory Results . Diagnostic Findings . Cervical Spine X-Ray 10/24/25 11:10 FL cervical 2-3V CLINICAL HISTORY: REMOVAL CERVICAL POSTERIOR INSTRUMENTATION COMPARISON STUDY: CT cervical spine 09/27/2025 FLUOROSCOPY TIME: 1.7 seconds FLUOROSCOPY IMAGES: 1 EXPOSURE DOSE: 0.25 mGy FINDINGS: Single image of the cervical spine demonstrates apparent removal of the posterior interbody sera and screw fusion hardware previously seen at C5-C7. Remaining hardware involving the vertebral bodies at C4-C7 remains [address]. Retractors are present along with an endotracheal tube. IMPRESSION: Fluoroscopic assistance as above. ACT 112: Negative or not required by law. Electronically signed by: Agustin Mares M.D. 10/24/2025 2:59 PM PG Care Time/CCT Total # of Minutes Spent Total Time Spent with Patient: Total time spent is greater than 50% in coordination of care (as documented) at patient's floor/unit and/or counseling patient: Coding Level of Care Code 81981 Post Operative Follow-Up Diagnoses Orthopedic device, implant, or graft complication T84.9XXA S/P hardware removal Z98.890
[2025-10-25] MEDS: UMECLIDINIUM/VILANTEROL 62.5/25MCG 7 PUFFS/INHALER INH SCH (09:02)
--- NOTE | 2025-10-25 11:03 | XRay Report ---
CERVICAL SPINE 2 VIEWS CLINICAL HISTORY: Postoperative examination. FINDINGS: AP and lateral views of the cervical spine are compared to study dated 08/30/2025. The skel etal structures are osteopenic. There is no radiographic evidence of acute fracture or subluxation. P osterior fusion hardware in the lower cervical spine has been removed when compared to previous. A cuevas rgical drain is in place and there is posterior soft tissue edema and skin clips. Again seen is posts urgical change from a discectomy at C4-C5, C5-C6, and C6-C7 with multilevel anterior fusion. The sergio ining hardware appears intact. Vertebral body height and alignment are maintained throughout the cerv ical spine. The spinolaminar line is preserved. The spinous processes appear intact. Productive degen erative change is noted at the atlantodental articulation. Multilevel facet arthropathy is seen on th e AP view. IMPRESSION: 1. There is no radiographic evidence of acute fracture or subluxation. 2. Postsurgical change as above with expected postoperative findings. Dictated: 10/25/2025 9:49 AM Transcribed: 10/25/2025 10:52 AM Myles [id number] [email or web address] [id number] Electronically signed by: Jesus Bynum M.D. 10/25/2025 11:02 AM
--- NOTE | 2025-10-25 11:15 | Discharge Summary ---
Date of Service October 25, 2025 Principal Diagnosis Same as "Discharge Diagnosis" noted below under Discharge Instructions. Discharge Exam . * General: Alert and oriented, no acute distress * Constitutional: well-developed, well-nourished. * Respiratory: Normal respiratory effort, no distress * Gastrointestinal: No tenderness to palpation, no rigidity or guarding. * Skin: No rash or lesion. * Neurologic: Grossly normal * Musculoskeletal: Surgical dressing CDI. Drain intact. Cervical spine region without obvious deformity or overlying skin changes. Minimal tenderness of surgical region, otherwise no tenderness b/l UE. Neck ROM with minimal pain. AROM b/l shoulder flexion, elbow flexion/extension, wrist flexion/extension intact. Sensation intact radial/median/ulnar nerve distributions. Brisk capillary refill. Discharge Data Consultations 10/24/25 15:42 Consult Hospitalist Routine Procedures Performed Operation Date: 10/24/25 11:10 Actual Procedures p Removal Cervical Posterior Instrumentation, Spinal Cord Monitoring - Jesus Thorne MD Ordered Studies 10/24/25 11:10 FL spine 1V any level Routine Hospital Course (1) S/P hardware removal: (2) Orthopedic device, implant, or graft complication: (3) Paresthesia and pain of both upper extremities: Plan Patient was admitted postoperatively for pain control and mobilization with physical therapy. They worked with physical therapy and met all goals. Pain was controlled with IV pain medication and transitioned to oral medications. Normal return of bowel and bladder function. They worked with physical therapy, vital signs were acceptable, no need for transfusion, deemed safe for discharge. PG Care Time/CCT Total # of Minutes Spent Total Time Spent with Patient: Total time spent is greater than 50% in coordination of care (as documented) at patient's floor/unit and/or counseling patient: Discharge Plan Discharge Items Patient Disposition: Home - Self-Care Reason For Visit: Orthopedic Device, Implant, or Graft Complication Discharge Diagnosis: s/p removal posterior cervical hardware Activity: Per Instructions section Non-emergency contact: Surgeon Call non-emergency contact if: your symptoms worsen, your pain is worsening, your temperature is above 101 and your wound has increased drainage Follow-up/Referrals: Milton Meléndez MD [Primary Care Provider] - Jesus Thorne MD [Surgeon] - (11/08/25 @ 15:30) Diet: Regular Addtl Attending Provider Instructions: Instructions for Non-Fusion Spine Surgery YOU WILL BE PROVIDED WITH A PRESCRIPTION STRENGTH ANTI-INFLAMMATORY MEDICATION. THIS WILL BE THE BEST PAIN MEDICATION FOR THE TYPE OF PAIN YOU WILL EXPERIENCE. DO NOT TAKE ANY HERBAL SUPPLEMENTS MEDICATIONS: Toradol or other prescription non-steroidal anti-inflammatory drugs (NSAIDs): take for 3 days post op for pain control, as long as you do not have a contraindication for NSAIDs from your primary care physician. Oxycodone, Percocet, or Hydrocodone For breakthrough pain. Cyclobenzaprine (Flexeril), Tizanide (Zanaflex), or Methocarbamol (Robaxin) For muscle spasms. Senna-s and Miralax Senna-S twice daily, 17g packet of Miralax with water once daily while taking narcotics. These medications prevent constipation caused by the pain medications. Ondansetron (Zofran) For nausea Cephalexin (Keflex) or Sulfamethoxazole/trimethoprim (Bactrim). Antibiotic. You are given IV antibiotics while in the hospital; you may or may not be given a prescription for home; this will be decided after surgery. Your pre-surgery prescription medications With the exception of anti- inflammatory medications, blood thinners (Coumadin, Plavix, Eliquis, Pradaxa, etc}, or narcotic pain medications, you may resume your home medications. For the above medications, you will be given specific instructions. ACTIVITIES: Walking Walking is mandatory. You need to walk at least once every hour while awake. Walking will help prevent blood clots in your legs and help prevent spasms in your back. Bending/twisting It is safe to gently bend, roll over, sit up, lie on your back and do other normal activities. You may sleep in any position that is comfortable. Avoid athletic activities until further notice. Lifting Do not lift more than 10 lbs until further notice. Driving You may drive when you are no longer taking narcotic pain medications, can safely operate the brake/gas/clutch pedals, and can move your head/neck for visibility. Tobacco All tobacco products are strictly prohibited after surgery. Any use will dramatically increase your risk of complications. This includes vapor cigarettes, marijuana, nicotine patches and gums. Bracing/Cervical Collar Not required; if you are provided a soft collar it is for comfort and may be worn as desired. SURGICAL DRESSING Initial operative dressing is to stay on for 2 days; you may change if it becomes saturated. From then on, change the dressing daily with dry gauze and paper tape. Continue to change dressing until there is no discharge on the dressing. Once there is no discharge on the dressing, you may leave the incision open to air and make sure to keep it out of the sun. For supplies, stop by any local pharmacy. Any type of gauze dressing is acceptable. Do not put any ointments on the wound. SHOWERING You may shower 48 hours after your surgery. Cover the incision with Saran Wrap and tape the edges to prevent water from contacting the incision. If water contacts the incision, pat dry. No baths or submerging the incision until seen in the clinic at follow up appointment. QUESTIONS Please contact the office with questions or concerns: [phone] If outside normal business hours, you will be connected with the on-call physician. Pending Studies at Discharge: No Stand-Alone Forms: [facility], Smoking Cessation Medications and DC Order Prescriptions: New hydrocodone-acetaminophen 10-325 mg tablet 1 tab PO Q6 PRN (Reason: pain) 15 Days Qty: 60 0RF tizanidine 4 mg Tablet 4 mg PO Q8H PRN (Reason: muscle spasticity) 30 Days Qty: 90 0RF Continued diltiazem HCl 360 mg capsule,extended release 24hr 360 mg PO QAM Qty: 90 3RF Patient Comments: TAKES QAM Trelegy Ellipta 200-62.5-25 mcg blister with device 1 inh inhalation DAILY Qty: 3 3RF rosuvastatin 10 mg tablet 10 mg PO QAM Qty: 90 3RF losartan 100 mg tablet 100 mg PO QAM Qty: 90 3RF Patient Comments: QAM naproxen 500 mg tablet 500 mg PO BID PRN (Reason: pain) Qty: 180 1RF albuterol sulfate 90 mcg/actuation HFA aerosol inhaler 2 puff INH QID PRN (Reason: shortness of breath or wheezing) Qty: 25.5 5RF glucosamine-chondroitin [Osteo Bi-Flex] 250-200 mg Tablet 2 tab PO QAM Discharge Orders: Discharge Order (Routine); Ordered 10/25/25 Ordered By: Jesus Thorne Admission Data Admit Date/Time: 10/24/25 13:57 Attending Provider: Jesus Thorne Admit Provider: Jesus Thorne Primary Care Provider: Milton Meléndez Other Providers: Omero Kruse; Rich Pineda; Jony Bethea; Forrest Villalpando; Lucio Werner; Dora Da Silva; Radha Zambrano; Susana Whittington; Joseph Franklin; Deya Cano; Milton Romano; Sophia Gallegos; Rich Eddy; Jimmy Montiel; Brant Gonzalez; Griselda Ponce; Griselda Lazar; Zuleyma Reyes; Ai Loja; Tangela Hu.; Rubén Denis; Willis Mishra; Geronimo Carcamo; Anat Hernández.; Nely Valdivia; Cedric Brar; Tyler Richards; Yair Main; Svetlana Rosales; Scar Larios; Michelle Teresa; Diogenes Orlando; Bina Bishop; Lety Valencia; Vanesa Ramos; Frantz Andrade; Irene Oakes; Alexa Palmer; Kd Carrington; Charlie Khan A
== END 2025-10-25 12:00 | disposition home or self-care (01) ==
LOC: ASU 10:12 → 3W 10:12
DX: I27.20 Pulmonary hypertension, unspecified; Z88.5 Allergy status to narcotic agent; J44.9 Chronic obstructive pulmonary disease, unspecified; T84.9XXA Unspecified complication of internal orthopedic prosthetic device, implant and graft, initial encounter; I10 Essential (primary) hypertension; R20.2 Paresthesia of skin; M26.609 Unspecified temporomandibular joint disorder, unspecified side; M19.90 Unspecified osteoarthritis, unspecified site; Z87.891 Personal history of nicotine dependence; M79.602 Pain in left arm; Z88.8 Allergy status to other drugs, medicaments and biological substances; Z91.048 Other nonmedicinal substance allergy status; Z79.899 Other long term (current) drug therapy; I25.10 Atherosclerotic heart disease of native coronary artery without angina pectoris; M79.601 Pain in right arm; E78.5 Hyperlipidemia, unspecified